=== PATIENT | female | born 1930 ===

== ENCOUNTER 2021-01-25 08:28 | Day surgery (SDC) | payer MEDICARE ==
[2021-01-25] MEDS ORDERED: ceFAZolin 1 GM in SODIUM CHLORIDE 0.9% 250 ML IRRIGATION PRN (09:32)
[2021-01-25] MEDS ORDERED: SODIUM CHLORIDE 0.9% 1,000 ML IV SCH ×2 (09:32)
[2021-01-25 09:39] LABS: Anisocytosis Slight; Basophils % (A) 0 %; Eosinophils # (A) 0.1 k/uL (0-0.7); Eosinophils % (A) 1 %; HCT 43.1 % (34.0-46.0); HGB 14.2 gm/dL (11.4-16.0); Hypochromasia Slight; Lymphocytes # (A) 1.8 k/uL (1.0-4.8); Lymphocytes % (A) 33 %; MCH 31.3 pg (25.0-35.0); MCHC 32.9 g/dL (31.0-37.0); MCV 95.2 fL (80.0-100.0); Mean Platelet Volume 9.3; Monocytes # (A) 0.4 k/uL (0-1.0); Monocytes % (A) 6 %; Neutrophils # (A) 3.2 k/uL (1.3-7.7); Neutrophils % (A) 58 %; Platelet Count 141 k/uL (150-450); RBC 4.53 m/uL (3.80-5.40); RDW 16.4 % (11.5-15.5); WBC 5.5 k/uL (3.8-10.6)
[2021-01-25 09:54] LABS: Calcium 10.2 mg/dL (8.4-10.2); Potassium 4.2 mmol/L (3.5-5.1)
[2021-01-25] MEDS ORDERED: LIDOCAINE 1% INJ 10MG/ML (20 ML MDV) ONE (10:20)
[2021-01-25] MEDS ORDERED: MIDAZOLAM 2 MG/2 ML VIAL IV ONE (10:35)
[2021-01-25] MEDS ORDERED: LIDOCAINE 1% INJ 10MG/ML (20 ML MDV) SQ ONE ×3 (10:39→11:28)
--- NOTE | 2021-01-25 11:43 | P.PCN ---
Preoperative Diagnosis: 1. Conscious sedation Patient underwent EP procedure under conscious sedation/moderate sedation, monitoring of the level of consciousness and physiologic parameters including but not limited to vital signs and oxygenation. Patient tolerated the procedure well without any acute complications. Start time: 1036 Stop time: 1138 2. Transvenous temporary pacing procedure Indication for the procedure: Severe underlying bradycardia/complete heart block/pacemaker generator at EOL Patient was brought to the EP lab in a fasting state. Written informed consent was obtained prior to the procedure. The right groin was prepped and draped as a protocol. A 6-Egyptian sheath was placed in the right femoral vein. Via this, a temporary pacing catheter was placed in the right ventricle. Thresholds were interrogated. Temporary pacing was performed through the rest of the procedure. At the end of the entire procedure, the TVP was removed. The sheath was removed and hemostasis was assured. Patient tolerated the procedure well without any acute complications. Procedure performed Transvenous temporary pacing
--- NOTE | 2021-01-25 11:45 | P.PRLE ---
RE: Vilma Short Dear Abran Esparza has complete heart block and a device was at end-of-life She underwent a transvenous temporary pacemaker followed by replacement of her dual-chamber pacemaker generator successfully She tolerated the procedure well without any acute complications We will see her again within a week in the office Thank you for entrusting me with the care of the patient Warm regards Sincerely Greg Giraldo
--- NOTE | 2021-01-25 11:47 | P.PCN ---
Preoperative Diagnosis: Cine fluoroscopy of the leads was performed Atrial lead noted in the right atrial appendage stable RV lead chronically positioned in the RV apex No fractures or breaks noted Fluoroscopy of the generator was performed, for normal limits
[2021-01-25] MEDS ORDERED: ACETAMINOPHEN TAB 325 MG TAB PO PRN (11:53)
[2021-01-25] MEDS ORDERED: ACETAMINOPHEN IV (For NPO) 1,000 MG in EMPTY BAG 1 BAG IVPB ONE (12:30)
--- NOTE | 2021-01-25 13:29 | CE ---
CARDIAC ELECTROPHYSIOLOGY REPORT This is an 89-year-old female with complete heart block whose device was at end of life. She was seen on Monday and she was urgently scheduled for dual-chamber pacemaker generator change along with TVP. After the TVP was placed, the left pectoral area was prepped and draped as per protocol. Lidocaine 1% was used for local anesthesia. An incision was made directly over the generator and carried down to the level of the generator. The generator was explanted and the new generator was implanted. Partial capsulectomy was performed. Hemostasis was assured. The wound was closed in 3 layers and dressed per protocol. The new generator implanted was a Medtronic Landrum XT DR MRI model number [id number], serial number [id number]. The chronic right atrial lead was a Medtronic model #5594, 45 cm in length, and serial number [id number]. P-waves were 1.4 volts, pacing impedance 323 ohms, pacing threshold 0.5 V at 0.4 milliseconds. The chronic RV lead was a Medtronic model #5076, 52 cm in length, and serial number [id number]. Pacing threshold 0.75 volts at 0.4 milliseconds, pacing impedance of 437 ohms. The patient tolerated the procedure well without any acute complications. IV antibiotics were administered perioperatively. MMODL / IJN: [id number] /
[2021-01-25] MEDS ORDERED: METOPROLOL SUCCINATE (ER) 25 MG TAB.ER.24H PO SCH (21:00)
[2021-01-25 21:23] VITALS: BP 166/90; PULSE 55; RESP 16; TEMP 97.7
== END 2021-01-25 22:05 | disposition home or self-care (01) ==
LOC: CATHEP 08:28 → 6NMEDSUR 11:56 → CATHEP 22:05
PROVIDERS: ATTEND Internal Medicine Clinical Cardiac Electrophysiology
DX: Z45.010 Encounter for checking and testing of cardiac pacemaker pulse generator [battery] (principal); I44.2 Atrioventricular block, complete; Z79.899 Other long term (current) drug therapy
CPT/HCPCS: 33228; 80048; 85025; C1894; C1769 ×3; C1730 ×2; C1785; J2250; J0690; J2001; J0131

== ENCOUNTER 2021-05-27 22:45 | Inpatient (IN) | payer MEDICARE ==
[2021-05-27] MEDS ORDERED: ONDANSETRON 4 MG/2 ML VIAL IVP STA (23:10)
[2021-05-27] MEDS ORDERED: SODIUM CHLORIDE 0.9% 1,000 ML IV STA (23:10)
[2021-05-27] MEDS ORDERED: MORPHINE SULFATE 4 MG/ML SYRINGE IV STA (23:10)
[2021-05-27] MEDS ORDERED: SODIUM CHLORIDE 0.9% 500 ML 500 ML IV STA (23:10)
--- NOTE | 2021-05-27 23:11 | ED ---
Fall HPI - General Chief Complaint: Fall Stated Complaint: Fall, hip injury Time Seen by Provider: 05/27/21 22:51 Source: patient, EMS, RN notes reviewed, old records reviewed Mode of arrival: EMS - History of Present Illness Initial Comments: This is a 89-year-old female to the emergency department for evaluation. Patient presents today for evaluation of significant leg pain left flank pain and inability to walk. Patient has persistent pain in the leg and back. Patient unable to walk on that leg. Patient has no recent travel history or sick contacts. Follows mechanical in nature: The bathroom. Patient has history of weakness and chronic weakness MD Complaint: fall -: minutes(s) Fall From: standing When Fall Occurred: 1 hour [employer] Fall Witnessed: no Place Fall Occurred: home Loss of Consciousness: none Prolonged Down Time?: no Symptoms Prior to Fall: none Location: pelvis Location - Extremities: Left: Thigh, Knee Severity: severe Severity scale (1-10): 9 Quality: burning Context: tripped/slipped Associated Symptoms: denies - Related Data Home Medications Medication Instructions Recorded Confirmed Citalopram Hydrobromide 20 mg PO DAILY 01/22/21 01/25/21 [Citalopram HBr] Metoprolol Succinate [Kapspargo 25 mg PO BID 01/22/21 01/25/21 Sprinkle] Allergies Allergy/AdvReac Type Severity Reaction Status Date / Time No Known Allergies Allergy Verified 01/22/21 15:05 Review of Systems ROS Statement: Those systems with pertinent positive or pertinent negative responses have been documented in the HPI. ROS Other: All systems not noted in ROS Statement are negative. Past Medical History Past Medical History: Cancer, Heart Failure Additional Past Medical History / Comment(s): breast cancer pacemaker History of Any Multi-Drug Resistant Organisms: None Reported Past Surgical History: Back Surgery Additional Past Surgical History / Comment(s): double mastectomy Past Anesthesia/Blood Transfusion Reactions: No Reported Reaction Past Psychological History: No Psychological Hx Reported Smoking Status: Never smoker Past Drug Use History: None Reported General Exam Limitations: no limitations General appearance: alert, in no apparent distress Head exam: Present: atraumatic, normocephalic, normal inspection Eye exam: Present: normal appearance, PERRL, EOMI. Absent: scleral icterus, conjunctival injection, periorbital swelling ENT exam: Present: normal exam, mucous membranes moist Neck exam: Present: normal inspection. Absent: tenderness, meningismus, lymphadenopathy Respiratory exam: Present: normal lung sounds bilaterally. Absent: respiratory distress, wheezes, rales, rhonchi, stridor Cardiovascular Exam: Present: regular rate, normal rhythm, normal heart sounds. Absent: systolic murmur, diastolic murmur, rubs, gallop, clicks GI/Abdominal exam: Present: soft, normal bowel sounds. Absent: distended, tenderness, guarding, rebound, rigid Extremities exam: Present: tenderness, normal capillary refill. Absent: full ROM, pedal edema, joint swelling, calf tenderness Back exam: Present: normal inspection Neurological exam: Present: alert, oriented X3, CN II-XII intact Psychiatric exam: Present: normal affect, normal mood Skin exam: Present: warm, dry, intact, normal color. Absent: rash Course Vital Signs 05/27/21 22:49 Temperature 97.4 F L Pulse Rate 67 Respiratory 17 Rate Blood Pressure 144/75 O2 Sat by Pulse 96 Oximetry - Reevaluation(s) Reevaluation #1: 05/28/21 01:19 Medical record is reviewed Reevaluation #2: 05/28/21 01:19 Patient having persistent left leg pain inability to move left leg Reevaluation #3: 05/28/21 02:01 Patient is unable to move left leg or walk. 05/28/21 02:01 Having severe left leg pain Medical Decision Making - Medical Decision Making 89 female to the ER status post fall with severe left leg pain patient has persistent left leg pain with inability to ambulate. Patient will be admitted for pain control and PTOT - Lab Data Result diagrams: 05/27/21 23:30 05/27/21 23:30 Lab Results 05/27/21 05/27/21 05/27/21 Range/Units 23:30 23:30 23:30 WBC 9.1 (3.8-10.6) k/uL RBC 4.26 (3.80-5.40) m/uL Hgb 13.0 (11.4-16.0) gm/dL Hct 40.1 (34.0-46.0) % MCV 94.1 (80.0-100.0) fL MCH 30.5 (25.0-35.0) pg MCHC 32.5 (31.0-37.0) g/dL RDW 13.6 (11.5-15.5) % Plt Count 138 L (150-450) k/uL MPV 8.5 Neutrophils % 79 % Lymphocytes % 15 % Monocytes % 5 % Eosinophils % 1 % Basophils % 0 % Neutrophils # 7.2 (1.3-7.7) k/uL Lymphocytes # 1.3 (1.0-4.8) k/uL Monocytes # 0.4 (0-1.0) k/uL Eosinophils # 0.1 (0-0.7) k/uL Basophils # 0.0 (0-0.2) k/uL PT 10.6 (9.0-12.0) sec INR 1.0 (<1.2) APTT 22.2 (22.0-30.0) sec Sodium 135 L (137-145) mmol/L Potassium 4.2 (3.5-5.1) mmol/L Chloride 99 (98-107) mmol/L Carbon Dioxide 27 (22-30) mmol/L Anion Gap 9 mmol/L BUN 40 H (7-17) mg/dL Creatinine 0.96 (0.52-1.04) mg/dL Est GFR (CKD-EPI)AfAm 61 (>60 ml/min/1.73 sqM) Est GFR (CKD-EPI)NonAf 53 (>60 ml/min/1.73 sqM) Glucose 138 H (74-99) mg/dL Calcium 9.4 (8.4-10.2) mg/dL Phosphorus 4.0 (2.5-4.5) mg/dL Magnesium 1.9 (1.6-2.3) mg/dL Total Bilirubin 0.4 (0.2-1.3) mg/dL AST 28 (14-36) U/L ALT 25 (4-34) U/L Alkaline Phosphatase 115 (38-126) U/L Troponin I (0.000-0.034) ng/mL NT-Pro-B Natriuret Pep pg/mL Total Protein 6.8 (6.3-8.2) g/dL Albumin 3.5 (3.5-5.0) g/dL 05/27/21 05/27/21 Range/Units 23:30 23:30 WBC (3.8-10.6) k/uL RBC (3.80-5.40) m/uL Hgb (11.4-16.0) gm/dL Hct (34.0-46.0) % MCV (80.0-100.0) fL MCH (25.0-35.0) pg MCHC (31.0-37.0) g/dL RDW (11.5-15.5) % Plt Count (150-450) k/uL MPV Neutrophils % % Lymphocytes % % Monocytes % % Eosinophils % % Basophils % % Neutrophils # (1.3-7.7) k/uL Lymphocytes # (1.0-4.8) k/uL Monocytes # (0-1.0) k/uL Eosinophils # (0-0.7) k/uL Basophils # (0-0.2) k/uL PT (9.0-12.0) sec INR (<1.2) APTT (22.0-30.0) sec Sodium (137-145) mmol/L Potassium (3.5-5.1) mmol/L Chloride (98-107) mmol/L Carbon Dioxide (22-30) mmol/L Anion Gap mmol/L BUN (7-17) mg/dL Creatinine (0.52-1.04) mg/dL Est GFR (CKD-EPI)AfAm (>60 ml/min/1.73 sqM) Est GFR (CKD-EPI)NonAf (>60 ml/min/1.73 sqM) Glucose (74-99) mg/dL Calcium (8.4-10.2) mg/dL Phosphorus (2.5-4.5) mg/dL Magnesium (1.6-2.3) mg/dL Total Bilirubin (0.2-1.3) mg/dL AST (14-36) U/L ALT (4-34) U/L Alkaline Phosphatase (38-126) U/L Troponin I <0.012 (0.000-0.034) ng/mL NT-Pro-B Natriuret Pep 861 pg/mL Total Protein (6.3-8.2) g/dL Albumin (3.5-5.0) g/dL - EKG Data -: EKG Interpreted by Me (EKG shows paced 68 AK 134 QRS 142 QTC 527) - Radiology Data Radiology results: report reviewed (X-ray left hip left femur and chest x-ray are negative for acute disease, CT left leg), image reviewed Disposition Clinical Impression: Fall, Left thigh pain, Hematoma of left lower leg, Inability to ambulate due to left hip Disposition: ADMITTED IP TO THIS HOSP Condition: Good Is patient prescribed a controlled substance at d/c from ED?: No Referrals: Abran Glover MD [Primary Care Provider] - 1-2 days
[2021-05-27 23:51] LABS: Basophils % (A) 0 %; Eosinophils # (A) 0.1 k/uL (0-0.7); Eosinophils % (A) 1 %; HCT 40.1 % (34.0-46.0); Lymphocytes # (A) 1.3 k/uL (1.0-4.8); Lymphocytes % (A) 15 %; MCH 30.5 pg (25.0-35.0); MCHC 32.5 g/dL (31.0-37.0); MCV 94.1 fL (80.0-100.0); Mean Platelet Volume 8.5; Monocytes # (A) 0.4 k/uL (0-1.0); Monocytes % (A) 5 %; Neutrophils # (A) 7.2 k/uL (1.3-7.7); Neutrophils % (A) 79 %; Platelet Count 138 k/uL (150-450); RBC 4.26 m/uL (3.80-5.40); RDW 13.6 % (11.5-15.5); WBC 9.1 k/uL (3.8-10.6)
--- NOTE | 2021-05-28 00:10 | XR ---
EXAMINATION TYPE: XR Hip LT and AP Pelvis DATE OF EXAM: 05/27/2021 COMPARISON: NONE HISTORY: Fall. Hip pain TECHNIQUE: 3 views FINDINGS: The pelvic ring is intact. Proximal left femur and hip joint appear intact. There is no hip dysplasia. There is minimal acetabular spurring. Sacroiliac joints are intact. IMPRESSION: No acute abnormality of the pelvis and left hip.
--- NOTE | 2021-05-28 00:12 | XR ---
EXAMINATION TYPE: XR chest 1V DATE OF EXAM: 05/27/2021 COMPARISON: NONE HISTORY: Fall. Chest pain TECHNIQUE: Single view FINDINGS: There is no heart failure nor confluent pneumonic infiltrate. Costophrenic angles are clear . There is left axillary pacemaker. There is no pleural effusion. Thoracic aorta is atheromatous. Bon y thorax is intact IMPRESSION: No active cardiopulmonary disease.
[2021-05-28 00:13] LABS: Partial Thromboplastin Time 22.2 sec (22.0-30.0); Prothrombin Time 10.6 sec (9.0-12.0)
--- NOTE | 2021-05-28 00:15 | XR ---
EXAMINATION TYPE: XR femur LT DATE OF EXAM: 05/28/2021 COMPARISON: NONE HISTORY: Fall. Pain TECHNIQUE: 4 views FINDINGS: Hip joint is intact. There is mild acetabular spurring. There is left knee prosthesis. Ther e is vascular calcification. IMPRESSION: There is some mild osteoarthritis in the left hip joint. No fracture seen. Vascular calci fication noted.
[2021-05-28 00:17] LABS: Albumin 3.5 g/dL (3.5-5.0); Calcium 9.4 mg/dL (8.4-10.2); Potassium 4.2 mmol/L (3.5-5.1); Total Bilirubin 0.4 mg/dL (0.2-1.3); Total Protein 6.8 g/dL (6.3-8.2)
[2021-05-28 00:19] LABS: Magnesium 1.9 mg/dL (1.6-2.3)
--- NOTE | 2021-05-28 01:32 | CT ---
EXAMINATION TYPE: CT femur LT wo con DATE OF EXAM: 05/28/2021 COMPARISON: None HISTORY: fall CT DLP: 843.6 mGycm Automated exposure control for dose reduction was used. Images obtained from the acetabulum to the proximal tibia without contrast. There is a left knee prosthesis with metal artifact. Detail limited at the knee due to metal artifact . The proximal femur is intact. Hip joint is anatomic. I see no fracture. There is minimal acetabular spurring. There is no evidence of a soft tissue mass. There is no free fluid in the pelvis. There ar e multiple sigmoid diverticula. Femoral shaft is intact. IMPRESSION: Exam fails to show evidence of a femoral fracture. There are some degenerative changes at the hip prema nt.
[2021-05-28] MEDS ORDERED: HYDROmorphone 1 MG/ML 1 ML SYRINGE IVP PRN (01:48)
[2021-05-28] MEDS ORDERED: HYDROmorphone 1 MG/ML 1 ML SYRINGE IVP STA (01:48)
[2021-05-28] MEDS ORDERED: NALOXONE 0.4 MG/ML 1 ML VIAL IV PRN (01:59)
[2021-05-28] MEDS ORDERED: ONDANSETRON 4 MG/2 ML VIAL IVP PRN (01:59)
[2021-05-28] MEDS: SODIUM CHLORIDE 0.9% 1,000 ML IV SCH ×3 (02:20→18:18)
[2021-05-28 02:24] LABS: Appearance,Urine Cloudy (Clear); Bacteria,Urine Moderate /hpf; Bilirubin,Urine Negative (Negative); Blood,Urine Negative (Negative); Color,Urine Yellow; Glucose,Urine (UA) Negative (Negative); Ketones,Urine Negative (Negative); Leukocyte Esterase,Urine Moderate (Negative); Nitrite,Urine Positive (Negative); PH, Urine 6.5 (5.0-8.0); Protein,Urine Trace (Negative); RBC,Urine 1 /hpf (0-5); Specific Gravity,Urine 1.018 (1.001-1.035); Urobilinogen,Urine <2.0 mg/dL (<2.0); WBC,Urine 30 /hpf (0-5)
[2021-05-28] MEDS: MULTIVITAMINS, THERA 1 EACH TAB PO SCH (13:57)
[2021-05-28] MEDS: METOPROLOL SUCCINATE (ER) 25 MG TAB.ER.24H PO SCH (13:57)
--- NOTE | 2021-05-28 14:58 | P.HPIM ---
History of Present Illness H&P Date: 05/28/21 Chief Complaint: Left leg pain This is a pleasant 89-year-old patient, follows with visiting physicians Dr. Zuñiga. Patient is a poor historian. Per the EMS report and ER notes. Patient's caregiver stated that patient was found laying on the bathroom floor. She was assisting the patient off the toilet when the patient slipped and fell on to the bathroom floor landing directly onto her left hip. Nose no hitting of the head. Patient complaining of pain in the left leg. No rotational deformity was noted. Her pain within was 7 out of 10. Patient was then transported to the ER. The patient also is not sure why she is here. Computed tomography scan of the x-ray in the ER didn't rule out any obvious fracture. Patient still complains of pain in the left hip area. She does not know the month or the year on exactly why she is here. Patient looking for her daughter. Review of systems: GEN.: Tired EYES: None HEENT: None NECK: None RESPIRATORY: None CARDIOVASCULAR: None GASTROINTESTINAL: None GENITOURINARY: None MUSCULOSKELETAL: Joint pains LYMPHATICS: None HEMATOLOGICAL: None PSYCHIATRY: Forgetful NEUROLOGICAL: None Past medical history to include: Breast cancer, pacemaker, CHF, Social history: He denies history of smoking or alcohol. Has a caregiver. Family history: Patient cannot tell Physical examination: VITAL SIGNS: 97.6, 69, 16, 129/79, 92% on 1 L GENERAL: BMI 29.3, laying in bed, awake not in distress. EYES: Pupils equal. Conjunctiva normal. HEENT: External appearance of nose and ears normal, oral cavity grossly normal. NECK: JVD not raised; masses not palpable. HEART: First and second heart sounds are normal; no edema. LUNGS: Respiratory rate normal; clear to auscultation. ABDOMEN: Soft, nontender, liver spleen not palpable, no masses palpable. MUSCULAR skeletal: Evidence of OA especially in the hands and knees. Patient is able to lift her right leg a bit but not the left leg. Left leg is not shortened. I'll rotated. PSYCH: Patient knows her name. Does not know what place she is does not know the month of the year.l. NEUROLOGICAL: Cranial nerves grossly intact; no facial asymmetry, power and sensation grossly intact. LYMPHATICS: No lymph nodes palpable in the axilla and neck INVESTIGATIONS, reviewed in the clinical context: White count 9.1 hemoglobin 13 platelets 138 sodium 135 potassium 4.2. 40 creatinine 0.96 UA positive for nitrate, leukoesterase, WBC, bacteria Coronavirus [PCR]: Not detected EKG tracing personally reviewed by me-atrial sensed ventricular paced rhythm. Computed tomography scan left femur: DJD changes. No evidence of fracture. Chest x-ray film personally reviewed by me-pacemaker. Some unfolding of the aorta. Prominent pulmonary artery. Assessment and plan: -This patient presents with a fall when she fell off the toilet on the left hip. Having significant pain. Decreased range of motion. X-ray and the computed tomography scan board do not show any obvious fracture. We will consult orthopedics rule out any hairline fracture. Pain control. Fall precaution -Primary osteoarthritis multiple just bilaterally Pain control when necessary -Major cognitive impairment likely from advanced Alzheimer's dementia Check TSH. 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 Chronic systolic heart failure. Follow clinically -Possible UTI. 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 Consult orthopedics. Bedrest. Keflex. Subcu Lovenox. Home medications resumed. Tylenol for pain. Past Medical History Past Medical History: Cancer, Heart Failure Additional Past Medical History / Comment(s): breast cancer pacemaker History of Any Multi-Drug Resistant Organisms: None Reported Past Surgical History: Back Surgery Additional Past Surgical History / Comment(s): double mastectomy Past Anesthesia/Blood Transfusion Reactions: No Reported Reaction Past Psychological History: No Psychological Hx Reported Smoking Status: Never smoker Past Drug Use History: None Reported Medications and Allergies Home Medications Medication Instructions Recorded Confirmed Type Citalopram Hydrobromide 20 mg PO HS 01/22/21 05/28/21 History [Citalopram HBr] Metoprolol Succinate [Toprol XL] 25 mg PO BID 05/28/21 05/28/21 History Multivitamins, Thera [Multivitamin 1 tab PO DAILY 05/28/21 05/28/21 History (formulary)] Allergies Allergy/AdvReac Type Severity Reaction Status Date / Time No Known Allergies Allergy Verified 05/28/21 09:19 Physical Exam Vitals: Vital Signs Temp Pulse Pulse Resp BP BP Pulse Ox 05/28/21 08:00 97.6 F 69 16 129/79 92 L 05/28/21 05:26 77 16 100/66 98 05/28/21 02:00 81 17 104/71 98 05/27/21 22:49 97.4 F L 67 17 144/75 96 Intake and Output 05/27/21 05/28/21 05/28/21 22:59 06:59 14:59 Other: Weight 72.575 kg Results CBC & Chem 7: 05/27/21 23:30 05/27/21 23:30 Labs: Abnormal Lab Results - Last 24 Hours (Table) 05/27/21 05/27/21 05/27/21 Range/Units 02:15 23:30 23:30 Plt Count 138 L (150-450) k/uL Sodium 135 L (137-145) mmol/L BUN 40 H (7-17) mg/dL Glucose 138 H (74-99) mg/dL Urine Appearance Cloudy H (Clear) Urine Protein Trace H (Negative) Urine Nitrite Positive H (Negative) Ur Leukocyte Esterase Moderate H (Negative) Urine WBC 30 H (0-5) /hpf Urine Bacteria Moderate H (None) /hpf
[2021-05-28] MEDS: ENOXAPARIN 40 MG/0.4 ML SYRINGE SQ SCH (18:17)
[2021-05-28] MEDS: ACETAMINOPHEN TAB 500 MG TAB PO PRN (18:17)
[2021-05-28] MEDS: CEPHALEXIN 250 MG CAP PO SCH (19:22)
[2021-05-29] MEDS: METOPROLOL SUCCINATE (ER) 25 MG TAB.ER.24H PO SCH ×3 (03:21→21:30)
[2021-05-29] MEDS: ACETAMINOPHEN TAB 500 MG TAB PO PRN ×2 (03:21→18:00)
[2021-05-29] MEDS: CEPHALEXIN 250 MG CAP PO SCH ×4 (03:22→21:30)
[2021-05-29] MEDS: CITALOPRAM HYDROBROMIDE 20 MG TAB PO SCH ×2 (03:24→21:30)
[2021-05-29 06:26] LABS: Basophils % (A) 0 %; Eosinophils # (A) 0.1 k/uL (0-0.7); Eosinophils % (A) 1 %; HCT 35.7 % (34.0-46.0); HGB 11.9 gm/dL (11.4-16.0); Lymphocytes # (A) 2.1 k/uL (1.0-4.8); Lymphocytes % (A) 31 %; MCH 31.2 pg (25.0-35.0); MCHC 33.3 g/dL (31.0-37.0); MCV 93.8 fL (80.0-100.0); Mean Platelet Volume 8.5; Monocytes # (A) 0.5 k/uL (0-1.0); Monocytes % (A) 7 %; Neutrophils # (A) 4.1 k/uL (1.3-7.7); Neutrophils % (A) 59 %; Platelet Count 127 k/uL (150-450); RBC 3.81 m/uL (3.80-5.40); RDW 13.7 % (11.5-15.5); WBC 6.8 k/uL (3.8-10.6)
--- NOTE | 2021-05-29 07:36 | XR ---
EXAMINATION TYPE: XR knee complete LT DATE OF EXAM: 05/29/2021 7:18 AM INDICATION: Patient age:Female; 89 years old; Reason for study: fall/pain, concern for periprosthetic fx; COMPARISON: Radiograph 05/28/2021 TECHNIQUE: The left knee was examined in 3 projections. FINDINGS: Total knee arthroplasty changes are appreciated. Subtle step-off of the lateral femoral co ndyle is appreciated. No evidence convincing of acute osseous pathology, joint space narrowing, soft tissue swelling, or joint effusion is noted. IMPRESSION: Subtle step-off the lateral femoral condyle, this is not significantly changed from one day prior and may be related to postsurgical changes. If there remains clinical concern consider CT of the knee.
--- NOTE | 2021-05-29 08:26 | CT ---
EXAMINATION TYPE: CT knee LT wo con CT DLP: 358.6 mGycm, Automated exposure control for dose reduction was used. DATE OF EXAM: 05/29/2021 8:17 AM COMPARISON: Extremity radiograph same day. CLINICAL INDICATION:Female, 89 years old with history of periprosthetic fracture; TECHNIQUE: Axial images were obtained of the left knee without the use of IV contrast. Additional co ayden and sagittal reformatted images and soft tissue and bone window were obtained for review. 3-D r econstruction was created on a separate workstation. FINDINGS: Artifact limits evaluation. Previous cortical step-off of the left knee lateral femoral condyle is represent an acute fracture, t here is approximately 8 mm displacement. Visualized portions of the tibia and fibula and remainder of the femur are unremarkable. Atherosclerosis of the arterial vasculature is present. Mild fat strandi ng changes are seen around the fracture site. There is a small lipohemarthrosis present. IMPRESSION: Acute mildly displaced lateral left femoral condyle periprosthetic fracture is 8 mm displacement. Sma ll lipohemarthrosis present.
[2021-05-29 09:12] LABS: African American GFR (CKD) 65.7 (60.0-200.0); Albumin 3.6 g/dL (3.8-4.9); Albumin/Globulin Ratio 1.33 (1.60-3.17); Anion Gap 12.4 mmol/L (10.00-18.00); BUN/Creat Ratio 31.11 Ratio (12.00-20.00); Calcium 9.4 mg/dL (8.7-10.3); Carbon Dioxide 21.6 mmol/L (20.0-27.5); Globulin 2.7 g/dL (1.6-3.3); Non-African American GFR(CKD) 56.7 (60.0-200.0); Potassium 4.2 mmol/L (3.5-5.5); Total Bilirubin 1.2 mg/dL (0.30-1.20); Total Protein 6.3 g/dL (6.2-8.2)
[2021-05-29] MEDS: MULTIVITAMINS, THERA 1 EACH TAB PO SCH (09:20)
[2021-05-29] MEDS: ENOXAPARIN 40 MG/0.4 ML SYRINGE SQ SCH (09:20)
--- NOTE | 2021-05-29 10:47 | P.CNOR ---
History of Present Illness - [facility] Consult date: 05/29/21 Consult reason: fracture History of present illness: This is a pleasant 89-year-old patient seen at bedside this morning in consultation for left leg and knee pain. She is status post left total knee arthroplasty for which the date, where, and who performed the procedure is currently unknown. Patient is a poor historian as she has a history of dementia. She is alert at bedside this morning and in no apparent distress. In reports it is noted she was found in the bathroom after a fall. It is reported that the patient's caregiver was assisting the patient off the toilet when the patient slipped and fell on to the bathroom floor landing directly onto her left hip. She states she lives with her daughters. She states that she ambulates regularly prior to this injury. She has no pain at rest currently. Pain that she does report is in the left thigh and knee. She denies calf pain or new numbness or tingling. She has no other current complaints. Review of Systems ROS unobtainable: due to mental status Past Medical History Past Medical History: Cancer, Heart Failure Additional Past Medical History / Comment(s): breast cancer pacemaker History of Any Multi-Drug Resistant Organisms: None Reported Past Surgical History: Back Surgery Additional Past Surgical History / Comment(s): double mastectomy Past Anesthesia/Blood Transfusion Reactions: No Reported Reaction Smoking Status: Never smoker Medications and Allergies Home Medications Medication Instructions Recorded Confirmed Type Citalopram Hydrobromide 20 mg PO HS 01/22/21 05/28/21 History [Citalopram HBr] Metoprolol Succinate [Toprol XL] 25 mg PO BID 05/28/21 05/28/21 History Multivitamins, Thera [Multivitamin 1 tab PO DAILY 05/28/21 05/28/21 History (formulary)] Allergies Allergy/AdvReac Type Severity Reaction Status Date / Time No Known Allergies Allergy Verified 05/28/21 09:19 Physical Examination Inspection of the left lower extremity shows no deformity. There is no erythema or ecchymoses. There is an effusion at the left knee. There is a well-healed surgical wound from prior total knee arthroplasty. She is mildly tender to touch at the left knee. It is not hot to touch. Range of motion of the left hip and knee are not tested due to fracture. She has full painless active range of motion of the ankle, foot and toes. Calf is soft and nontender. Neuro vascular status is grossly intact with motor and sensation throughout the left lower extremity. There is 2+ dorsalis pedis pulse and less than 2 second capillary refill present. Results Imaging studies of the left femur and knee show mild displaced left lateral femoral condyle periprosthetic fracture. - Labs Labs: Abnormal Lab Results - Last 24 Hours (Table) 05/29/21 05/29/21 Range/Units 05:33 05:33 Plt Count 127 L (150-450) k/uL BUN 28.0 H (9.0-27.0) mg/dL Est GFR (CKD-EPI)NonAf 56.7 L (60.0-200.0) BUN/Creatinine Ratio 31.11 H (12.00-20.00) Ratio Glucose 124 H (70-110) mg/dL Albumin 3.6 L (3.8-4.9) g/dL Albumin/Globulin Ratio 1.33 L (1.60-3.17) g/dL Microbiology - Last 24 Hours (Table) 05/27/21 02:15 Urine Culture - Preliminary Urine,Voided H & H 05/27/21 05/29/21 Range/Units 23:30 05:33 Hgb 13.0 11.9 (11.4-16.0) gm/dL Hct 40.1 35.7 (34.0-46.0) % Coagulation 05/27/21 Range/Units 23:30 INR 1.0 (<1.2) Result Diagrams: 05/29/21 05:33 05/29/21 05:33 - Diagnostic results Knee x-ray: report reviewed, image reviewed Knee CT: report reviewed, image reviewed Assessment and Plan (1) Closed fracture of lateral condyle of distal end of left femur Narrative/Plan: Patient has been reviewed with Dr. Ramos. She is to be nonweightbearing of the left lower extremity. Continue ice, elevation, pain management, DVT prophylaxis and medical management. Dr. Ramos will discuss with family p ossibly proceeding with surgical intervention including repair versus revision early this coming week. Current Visit: Yes Status: Acute Priority: Medium Code(s): S72.422A - DISP FX OF LATERAL CONDYLE OF LEFT FEMUR, INIT FOR CLOS FX SNOMED Code(s): 037261458 Time with Patient: Less than 30
--- NOTE | 2021-05-29 14:41 | P.PN ---
Progress Note - Text Progress Note Date: 05/29/21 I had a long discussion with Vilma and her daughter. She has a very distal periprosthetic femur fracture around a primary total knee replacement. She has mild dementia, but is otherwise healthy and ambulates with a walker at baseline. We discussed both non-operative treatment versus operative treatment. Surgical options discussed included attempt at ORIF versus revision arthroplasty with a distal femoral replacing hinge. We discussed the pros and cons of both surgical options as well as the recent orthopaedic literature. Given the distal nature of her fracture, poor bone quality, and mild dementia, I recommended revision to a distal femoral replacing hinge as this would allow immediate weight bearing. If the family decides they would like to proceed with surgery, we would plan for surgery Monday afternoon. She is to remain NWB until then.
--- NOTE | 2021-05-29 15:28 | P.PN ---
Progress Note - Text Progress Note Date: 05/29/21 Chief Complaint: Left leg pain This is a pleasant 89-year-old patient, follows with visiting physicians Dr. Zuñiga. Patient is a poor historian. Per the EMS report and ER notes. Patient's caregiver stated that patient was found laying on the bathroom floor. She was assisting the patient off the toilet when the patient slipped and fell on to the bathroom floor landing directly onto her left hip. Nose no hitting of the head. Patient complaining of pain in the left leg. No rotational deformity was noted. Her pain within was 7 out of 10. Patient was then transported to the ER. The patient also is not sure why she is here. Computed tomography scan of the x-ray in the ER didn't rule out any obvious fracture. Patient still complains of pain in the left hip area. She does not know the month or the year on exactly why she is here. Patient looking for her daughter. May 29: Declining in bed. Some pain in the leg. Daughter the bedside. Oral intake fair. Computed tomography scan of the knee showing acute mildly displaced lateral left femoral condyle periprosthetic fracture. Orthopedic at this point to be discussing with the family operative versus conservative management with a brace Review of systems: Was done for constitutional, cardiovascular, GI, pulmonary. relevant finding as above Active Medications Acetaminophen (Acetaminophen Tab 500 Mg Tab) 500 mg PO Q4HR PRN PRN Reason: Fever and/ or MILD Pain Last Admin: 05/29/21 03:21 Dose: 500 mg Documented by: Cephalexin (Cephalexin 250 Mg Cap) 250 mg PO QID [facility] Last Admin: 05/29/21 12:15 Dose: 250 mg Documented by: Citalopram Hydrobromide (Citalopram Hydrobromide 20 Mg Tab) 20 mg PO HS [facility] Last Admin: 05/29/21 03:24 Dose: 20 mg Documented by: Enoxaparin Sodium (Enoxaparin 40 Mg/0.4 Ml Syringe) 40 mg SQ DAILY [facility] Last Admin: 05/29/21 09:20 Dose: 40 mg Documented by: Sodium Chloride (Saline 0.9%) 1,000 mls @ 50 mls/hr IV .Q20H [facility] Last Admin: 05/28/21 18:18 Dose: Not Given Documented by: Metoprolol Succinate (Metoprolol Succinate (Er) 25 Mg Tab.Er.24h) 25 mg PO BID [facility] Last Admin: 05/29/21 09:23 Dose: 25 mg Documented by: Multivitamins (Multivitamins, Thera 1 Each Tab) 1 each PO DAILY [facility] Last Admin: 05/29/21 09:20 Dose: 1 each Documented by: Naloxone HCl (Naloxone 0.4 Mg/Ml 1 Ml Vial) 0.2 mg IV Q2M PRN PRN Reason: Opioid Reversal Ondansetron HCl (Ondansetron 4 Mg/2 Ml Vial) 4 mg IVP Q8HR PRN PRN Reason: Nausea And Vomiting Past medical history to include: Breast cancer, pacemaker, CHF, Social history: He denies history of smoking or alcohol. Has a caregiver. Family history: Patient cannot tell Physical examination: VITAL SIGNS: 98.1, 80, 16, 140/69, 97% room air GENERAL: reclining bed, awake, comfortable. EYES: Pupils equal. Conjunctiva normal. HEENT: External appearance of nose and ears normal, oral cavity grossly normal. NECK: JVD not raised; masses not palpable. HEART: First and second heart sounds are normal; no edema. LUNGS: Respiratory rate normal; clear to auscultation. ABDOMEN: Soft, nontender, liver spleen not palpable, no masses palpable. MUSCULAR skeletal: Evidence of OA especially in the hands and knees. Patient is able to lift her right leg a bit but not the left leg. PSYCH: Can't answer simple questions INVESTIGATIONS, reviewed in the clinical context: May 29: WBC 6.8 hemoglobin 11.9 platelets 127 Computed tomography scan left knee: Acutely mildly displaced lateral left femoral condyle periprosthetic fracture White count 9.1 hemoglobin 13 platelets 138 sodium 135 potassium 4.2. 40 creatinine 0.96 UA positive for nitrate, leukoesterase, WBC, bacteria Coronavirus [PCR]: Not detected EKG tracing personally reviewed by me-atrial sensed ventricular paced rhythm. Computed tomography scan left femur: DJD changes. No evidence of fracture. Chest x-ray film personally reviewed by me-pacemaker. Some unfolding of the aorta. Prominent pulmonary artery. Assessment and plan: -This patient presents with a fall when she fell off the toilet :Acutely mildly displaced lateral left femoral condyle periprosthetic fracture Decision between surgical intervention and conservative management after discussion between orthopedics and family. -Primary osteoarthritis multiple just bilaterally Pain control when necessary -Major cognitive impairment likely from advanced Alzheimer's dementia Check TSH. 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 Chronic systolic heart failure. Follow clinically -Possible UTI. 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 Awaiting decision from orthopedics after discussion with the family. Discussed with the daughter the bedside.
[2021-05-29] MEDS: SODIUM CHLORIDE 0.9% 1,000 ML IV SCH (22:30)
[2021-05-30] MEDS: METOPROLOL SUCCINATE (ER) 25 MG TAB.ER.24H PO SCH (08:49)
[2021-05-30] MEDS: MULTIVITAMINS, THERA 1 EACH TAB PO SCH (08:50)
[2021-05-30] MEDS: CEPHALEXIN 250 MG CAP PO SCH ×4 (08:50→21:13)
[2021-05-30] MEDS: ENOXAPARIN 40 MG/0.4 ML SYRINGE SQ SCH (08:50)
--- NOTE | 2021-05-30 10:57 | P.PN ---
Subjective Progress Note Date: 05/30/21 Principal diagnosis: Left distal femur fracture status post left total knee arthroplasty Patient is pleasant 89 female seen at bedside this morning. We are following her for left distal femur periprosthetic fracture . She has no new complaints today. She has no pain at rest. She denies fever chills or calf pain. Objective - Vital Signs Vital signs: Vital Signs Temp 98.1 F 05/29/21 20:00 Pulse 78 05/30/21 08:46 Resp 18 05/30/21 05:00 BP 175/97 05/30/21 08:46 Pulse Ox 97 05/30/21 08:46 Intake & Output 05/29/21 05/30/21 05/30/21 18:59 06:59 18:59 Intake Total 240 Output Total 1000 300 Balance -1000 -60 Weight 72.575 kg Intake: Oral 240 Output: Urine 1000 300 Other: Voiding Method Indwelling Catheter Indwelling Catheter Indwelling Catheter - Exam Inspection of the left lower extremity shows no deformity. There is no erythema. There is mild effusion of the left knee. It is tender to touch. It is not hot to touch. Range of motion of the hip and knee and tested to the fracture. Calf is soft and nontender. Motor and sensation is grossly intact throughout the left lower extremity. 2+ dorsalis pedis pulse and less than 2 second capillary refill is present. - Constitutional General appearance: Present: no acute distress - Labs CBC & Chem 7: 05/29/21 05:33 05/29/21 05:33 Labs: Microbiology - Last 24 Hours (Table) 05/27/21 02:15 Urine Culture - Final Urine,Voided Escherichia coli Assessment and Plan (1) Closed fracture of lateral condyle of distal end of left femur Narrative/Plan: Patient has been reviewed with Dr. Ramos. She is to continue to be nonweightbearing of the left lower extremity. Continue ice, elevation, pain management, DVT prophylaxis and medical management. Plan is to proceed with surgical intervention tomorrow, 05/31/2021 in the afternoon with ORIF versus revision arthroplasty with distal femur hinge. She is to be nothing by mouth after midnight. Procedure and consent have been ordered. Current Visit: Yes Status: Acute Priority: Medium Code(s): S72.422A - DISP FX OF LATERAL CONDYLE OF LEFT FEMUR, INIT FOR CLOS FX SNOMED Code(s): 034575692 Time with Patient: Less than 30
[2021-05-30] MEDS: ACETAMINOPHEN TAB 500 MG TAB PO PRN ×2 (12:17→21:13)
--- NOTE | 2021-05-30 19:00 | P.PN ---
Progress Note - Text Progress Note Date: 05/30/21 Chief Complaint: Left leg pain This is a pleasant 89-year-old patient, follows with visiting physicians Dr. Zuñiga. Patient is a poor historian. Per the EMS report and ER notes. Patient's caregiver stated that patient was found laying on the bathroom floor. She was assisting the patient off the toilet when the patient slipped and fell on to the bathroom floor landing directly onto her left hip. Nose no hitting of the head. Patient complaining of pain in the left leg. No rotational deformity was noted. Her pain within was 7 out of 10. Patient was then transported to the ER. The patient also is not sure why she is here. Computed tomography scan of the x-ray in the ER didn't rule out any obvious fracture. Patient still complains of pain in the left hip area. She does not know the month or the year on exactly why she is here. Patient looking for her daughter. May 29: Declining in bed. Some pain in the leg. Daughter the bedside. Oral intake fair. Computed tomography scan of the knee showing acute mildly displaced lateral left femoral condyle periprosthetic fracture. Orthopedic at this point to be discussing with the family operative versus conservative management with a brace May 30: Reclining in bed. Having lunch. Daughter present. Decision made to proceed for surgery tomorrow. Pain control. Review of systems: Was done for constitutional, cardiovascular, GI, pulmonary. relevant finding as above Active Medications Acetaminophen (Acetaminophen Tab 500 Mg Tab) 500 mg PO Q4HR PRN PRN Reason: Fever and/ or MILD Pain Last Admin: 05/30/21 12:17 Dose: 500 mg Documented by: Cephalexin (Cephalexin 250 Mg Cap) 250 mg PO QID [facility] Last Admin: 05/30/21 17:42 Dose: 250 mg Documented by: Citalopram Hydrobromide (Citalopram Hydrobromide 20 Mg Tab) 20 mg PO HS [facility] Last Admin: 05/29/21 21:30 Dose: 20 mg Documented by: Enoxaparin Sodium (Enoxaparin 40 Mg/0.4 Ml Syringe) 40 mg SQ DAILY [facility] Last Admin: 05/30/21 08:50 Dose: 40 mg Documented by: Sodium Chloride (Saline 0.9%) 1,000 mls @ 50 mls/hr IV .Q20H [facility] Last Admin: 05/29/21 22:30 Dose: Not Given Documented by: Metoprolol Succinate (Metoprolol Succinate (Er) 25 Mg Tab.Er.24h) 25 mg PO BID [facility] Last Admin: 05/30/21 08:49 Dose: 25 mg Documented by: Multivitamins (Multivitamins, Thera 1 Each Tab) 1 each PO DAILY [facility] Last Admin: 05/30/21 08:50 Dose: 1 each Documented by: Naloxone HCl (Naloxone 0.4 Mg/Ml 1 Ml Vial) 0.2 mg IV Q2M PRN PRN Reason: Opioid Reversal Ondansetron HCl (Ondansetron 4 Mg/2 Ml Vial) 4 mg IVP Q8HR PRN PRN Reason: Nausea And Vomiting Past medical history to include: Breast cancer, pacemaker, CHF, Social history: He denies history of smoking or alcohol. Has a caregiver. Family history: Patient cannot tell Physical examination: VITAL SIGNS: 98.2, 70, 17, 171/74, 94% room air GENERAL: reclining bed, awake, comfortable. EYES: Pupils equal. Conjunctiva normal. HEENT: External appearance of nose and ears normal, oral cavity grossly normal. NECK: JVD not raised; masses not palpable. HEART: First and second heart sounds are normal; no edema. LUNGS: Respiratory rate normal; clear to auscultation. ABDOMEN: Soft, nontender, liver spleen not palpable, no masses palpable. MUSCULAR skeletal: Evidence of OA especially in the hands and knees. Patient is able to lift her right leg a bit but not the left leg. PSYCH: Can't answer simple questions INVESTIGATIONS, reviewed in the clinical context: TSH 1.03 June 1: WBC 6.8 hemoglobin 11.9 platelets 127 Computed tomography scan left knee: Acutely mildly displaced lateral left femoral condyle periprosthetic fracture White count 9.1 hemoglobin 13 platelets 138 sodium 135 potassium 4.2. 40 creatinine 0.96 UA positive for nitrate, leukoesterase, WBC, bacteria Coronavirus [PCR]: Not detected EKG tracing personally reviewed by me-atrial sensed ventricular paced rhythm. Computed tomography scan left femur: DJD changes. No evidence of fracture. Chest x-ray film personally reviewed by me-pacemaker. Some unfolding of the aorta. Prominent pulmonary artery. Assessment and plan: -This patient presents with a fall when she fell off the toilet :Acutely mildly displaced lateral left femoral condyle periprosthetic fracture For surgical intervention tomorrow -Essential hypertension uncontrolled Increase Lopressor to 50 mg twice a day. 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 Chronic systolic heart failure. Follow clinically -Possible UTI. 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 beta hillary. Increase Lopressor to 50 mg twice a day .Lisinopril hydrochlorothiazide 10/12 point 5 at night. Cutback IV fluids. Discussed with daughter She is medically stable to proceed with surgery. Telemetry.
[2021-05-30] MEDS: LISINOPRIL-HCTZ 10-12.5 MG 1 EACH TAB PO SCH (21:13)
[2021-05-30] MEDS: METOPROLOL TARTRATE 50 MG TAB PO SCH (21:13)
[2021-05-30] MEDS: CITALOPRAM HYDROBROMIDE 20 MG TAB PO SCH (21:13)
[2021-05-30] MEDS: SODIUM CHLORIDE 0.9% 1,000 ML IV SCH (21:14)
[2021-05-31] MEDS: SODIUM CHLORIDE 0.9% 1,000 ML IV SCH (04:47)
[2021-05-31] MEDS: METOPROLOL TARTRATE 50 MG TAB PO SCH ×2 (08:42→23:44)
[2021-05-31] MEDS: ACETAMINOPHEN TAB 500 MG TAB PO PRN (08:42)
[2021-05-31] MEDS: CEPHALEXIN 250 MG CAP PO SCH ×4 (09:55→21:48)
[2021-05-31] MEDS: MULTIVITAMINS, THERA 1 EACH TAB PO SCH (09:55)
[2021-05-31] MEDS: ENOXAPARIN 40 MG/0.4 ML SYRINGE SQ SCH (09:55)
[2021-05-31] MEDS ORDERED: ROPIVACAINE/EPI/CLONIDINE/KET 50 ML SYRINGE MISCELLANE PRN (10:07)
[2021-05-31] MEDS ORDERED: TRANEXAMIC ACID 1,000 MG in SODIUM CHLORIDE 0.9% 100 ML IVPB ONE ×4 (10:07)
[2021-05-31] MEDS ORDERED: LACTATED RINGERS 1,000 ML IV ONE ×2 (12:49→15:36)
[2021-05-31] MEDS ORDERED: ePHEDrine 50 MG/ML 1 ML AMP ONE (13:25)
[2021-05-31] MEDS ORDERED: GLYCOPYRROLATE 0.2 MG/ML 2 ML VIAL ONE (13:25)
[2021-05-31] MEDS ORDERED: HYDROmorphone (PF) 1 MG/ML ONE (13:25)
[2021-05-31] MEDS ORDERED: ETOMIDATE 2 MG/ML 10 ML VIAL ONE (13:25)
[2021-05-31] MEDS ORDERED: ROCURONIUM 10 MG/ML (5 ML VIAL) IV ONE (13:25)
[2021-05-31] MEDS ORDERED: SUCCINYLCHOLINE CHLORIDE 100 MG/5 ML SYR IV ONE (13:25)
[2021-05-31] MEDS ORDERED: LIDOCAINE 1% INJ 10MG/ML (20 ML MDV) ONE (13:25)
[2021-05-31] MEDS ORDERED: PHENYLEPHRINE-0.9% NACL SYG 1,000 MCG/10 ML SYRINGE ONE (13:25)
[2021-05-31] MEDS ORDERED: SODIUM CHLORIDE 0.9% 100 ML BAG ONE (13:25)
[2021-05-31] MEDS ORDERED: NEOSTIGMINE 1 MG/ML 10 ML VIAL ONE (13:25)
[2021-05-31] MEDS ORDERED: fentaNYL (PF) 50 MCG/ML 2 ML AMP ONE (13:25)
[2021-05-31] MEDS ORDERED: TRANEXAMIC ACID 1,000 MG/10 ML VIAL ONE (13:25)
[2021-05-31] MEDS ORDERED: VANCOMYCIN 1,000 MG VIAL MISCELLANE ONE (16:34)
[2021-05-31] MEDS ORDERED: HYDROmorphone 0.2 MG/1 ML SYRINGE IVP PRN (17:11)
[2021-05-31] MEDS ORDERED: HYDROcodone/APAP 5-325MG 1 EACH TAB PO PRN ×2 (17:11)
[2021-05-31] MEDS ORDERED: MAGNESIUM HYDROXIDE 2,400 MG/10 ML CUP PO PRN (17:11)
[2021-05-31] MEDS ORDERED: HYDROmorphone 0.5 MG/0.5 ML SYRINGE IVP PRN ×2 (17:11)
--- NOTE | 2021-05-31 17:25 | P.OP ---
Date of Procedure: 05/31/21 Preoperative Diagnosis: 1. Left periprosthetic distal femur fracture 2. Mild dementia Postoperative Diagnosis: 1. Left periprosthetic distal femur fracture 2. Mild dementia Procedure(s) Performed: 1. Left revision knee arthroplasty with distal femoral placing hinge 2. Application of negative pressure dressing, left knee, less than 50 cm Implants: 1. Nia GRMS Standard Left Femur 2. Nia GRMS [id number] 3. Nia GRMS Tibial M2 baseplate with 15x80 Stem 4. Poly 10mm with 3 degree bumper Anesthesia: GETA Surgeon: Gallito Ramos Balancing Machine Set Up Worker #1: Sina Victoria Estimated Blood Loss (ml): 300 IV fluids (ml): 1,800 Urine output (ml): 100 Pathology: none sent Condition: stable Disposition: PACU Indications for Procedure: The patient is a very pleasant 89-year-old female with a medical history significant for mild dementia who sustained a fall when she fell off the toilet resulting in a left distal periprosthetic femur fracture. The patient was admitted under internal medicine. She had x-rays and a computed tomography scan of the knee which showed a very low and unstable periprosthetic distal femur fracture. I met with the patient's daughter discuss treatment options. Treatment options discussed included nonoperative treatment with the braced, open reduction and internal fixation with either a retrograde nail or a plate and screws and revision knee arthroplasty with a distal femoral replacing hinge. We discussed the pros and cons of all treatment options. Since the patient was ambulatory with a walker prior to surgery, had very poor bone quality, and her fracture was very distal my recommendation was to revise her knee to a distal femoral replacing hinge to facilitate early ambulation. We had a long discussion on the potential risks and complications of this procedure including but certainly not limited to risks from anesthesia, superficial infection, deep periprosthetic joint infection, intraoperative fracture, postoperative fracture, patellar maltracking, leg length discrepancy, delayed wound healing, wound necrosis, damage to local blood vessels or nerves, instability, stiffness, dislocation, DVT, PE, other medical complications, failure to thrive, and inability to regain preinjury level of function, and possibly loss of life or limb. The patient and her daughters understand all these are the most common complications other less common competitions are possible. They provided both her verbal and written consent to go forward with surgery. Operative Findings: There is no acute fracture of the distal femur with a large hemarthrosis. Fracture line was very distal and was below the anterior flange of the femoral component. The femoral component also had debonded from the bone medially Description of Procedure: The patient was identified preoperatively and the correct left leg was marked my initials. I reviewed the consent form with the patient and her daughters. All their questions were answered. The patient was then brought back to the operating room by anesthesia. She was positioned on the OR table where a general anesthetic, preoperative antibiotics, and try to examine casted were given. A tourniquet was applied to the proximal aspect the left leg. A post was placed laterally and a bump was placed distally to allow flexion of the knee for positioning during surgery. Nonsterile drapes were applied. A pre-scrubbed with hexedine scrub brush was performed. The left leg was then prepped and draped in standard sterile fashion. Prior to starting surgery timeout was performed identifying the correct patient, operative extremity, and procedure. The patient's leg was then elevated, exsanguinated with an Esmarch bandage, and the tourniquet was inflated to 275 mmHg. X I began by outlining the prior anterior incision and scar over the knee. Skin incision was made directly over the previous scar with a scalpel. Dissection was carried down through the fascia and medial and lateral flaps were elevated taking care to stay deep to the fascia. A medial parapatellar arthrotomy was performed sharply. There was a large hemarthrosis which was evacuated. Was an obvious distal femur fracture immediately noted. The fracture was distal to the anterior flange of the femur. The femoral component also appeared to be loose distal medially. Medial and lateral gutters were debrided as well as tissue behind the patellar tendon and patellar button. The patellar button appeared well fixed. I then proceeded to release the collaterals off the femur as well as the posterior soft tissue attachments. A 2 cm ribbon retractor was placed under the femur and a sagittal saw was used to cut the distal femur above the anterior flange just proximal to the metaphyseal flare. Attention was then turned to the tibia. The interface between the cement and bone was identified and using a combination of a sagittal saw and reciprocating saws was debonded from the underlying bone. I then used a bone tamp and a mallet to gently remove the tibial component. An acorn bur was used to breakthrough the cement pedestal distally and then all remaining cement was removed with the acorn bur. I then sequentially reamed and trialed a tibial stem which had excellent fit and coverage. I then reamed the femur and placed a trial stem when I reached alvarez maria de jesus ramiresjacobo. Trial components were placed and the knee felt stable. All trial components were then removed. The wound was thoroughly irrigated with pulsatile lavage. I then cemented in stages. I began by cementing the tibial component and held until the cement had completely hardened. I then cemented the femur and held the femur in appropriate rotation until the cement had completely hardened. The implants were thoroughly irrigated and the hinge components were placed and the axle was placed with a 3 bumper. The knee had full extension and flexion. The tourniquet was let down to the cement had hardened. Liters were controlled. A 3 minute soak with dilute Betadine was performed. The Betadine was then irrigated out with 3 L of sterile saline using pulse lavage. The tourniquet was let down and the patellar tracked midline. A chlorhexidine solution was then used and the knee again irrigated with 1 L of sterile saline. A deep drain was placed. 2 g of vancomycin powder was placed. The wound was then closed in layers. The skin incision was closed with a running subcuticular Monocryl suture and reinforced with 2-0 nylon vertical mattress stitches. A Provine a wound VAC was placed. A drain sponge was placed. Leg was then wrapped with a web roll and an Darin wrap and placed in a knee immobilizer to protect the incision. The patient was then extubated, [place], and brought to recovery having tolerated the procedure well. Sina Victoria PA-C was required as a skilled doctor assistant due to the complexity of the procedure. Plan: The patient can weight-bear as tolerated on her left leg. She will wear her knee immobilizer for 24 hours to protect her incision. She will receive 2 doses of postoperative Ancef and then will need 2 weeks of doxycycline 100 mg twice a day due to her being a high risk revision. DVT prophylaxis with aspirin 81 mg twice a day.
--- NOTE | 2021-05-31 17:28 | XR ---
EXAMINATION TYPE: XR knee limited LT DATE OF EXAM: 05/31/2021 COMPARISON: 05/29/2021 HISTORY: Knee surgery TECHNIQUE: 4 views FINDINGS: There is a left knee prosthesis. Components are in anatomic position. IMPRESSION: There is revision of the knee prosthesis. No complicating process seen.
[2021-05-31] MEDS ORDERED: SODIUM CHLORIDE 0.9% 1,000 ML IV ONE ×2 (17:48)
--- NOTE | 2021-05-31 17:53 | P.PN ---
Progress Note - Text Progress Note Date: 05/31/21 Chief Complaint: Left leg pain This is a pleasant 89-year-old patient, follows with visiting physicians Dr. Zuñiga. Patient is a poor historian. Per the EMS report and ER notes. Patient's caregiver stated that patient was found laying on the bathroom floor. She was assisting the patient off the toilet when the patient slipped and fell on to the bathroom floor landing directly onto her left hip. Nose no hitting of the head. Patient complaining of pain in the left leg. No rotational deformity was noted. Her pain within was 7 out of 10. Patient was then transported to the ER. The patient also is not sure why she is here. Computed tomography scan of the x-ray in the ER didn't rule out any obvious fracture. Patient still complains of pain in the left hip area. She does not know the month or the year on exactly why she is here. Patient looking for her daughter. May 29: Declining in bed. Some pain in the leg. Daughter the bedside. Oral intake fair. Computed tomography scan of the knee showing acute mildly displaced lateral left femoral condyle periprosthetic fracture. Orthopedic at this point to be discussing with the family operative versus conservative management with a brace May 30: Reclining in bed. Having lunch. Daughter present. Decision made to proceed for surgery tomorrow. Pain control. May 31: Sulfa patient this morning. 3 daughters at the bedside. Pending surgery. Comfortable. Cheerful. Later this afternoon underwent left revision knee arthroplasty with distal femoral placing change. Review of systems: Was done for constitutional, cardiovascular, GI, pulmonary. relevant finding as above Active Medications Acetaminophen (Acetaminophen Tab 500 Mg Tab) 500 mg PO Q4HR PRN PRN Reason: Fever and/ or MILD Pain Last Admin: 05/31/21 08:42 Dose: 500 mg Documented by: Hydrocodone Bitart/Acetaminophen (Hydrocodone/Apap 5-325mg 1 Each Tab) 1 each PO Q6HR PRN PRN Reason: Pain Scale 1 to 5 Hydrocodone Bitart/Acetaminophen (Hydrocodone/Apap 5-325mg 1 Each Tab) 2 each PO Q6HR PRN PRN Reason: Pain Scale 6 to 10 Aspirin (Aspirin 81 Mg) 81 mg PO BID [facility] Cephalexin (Cephalexin 250 Mg Cap) 250 mg PO QID [facility] Last Admin: 05/31/21 12:30 Dose: Not Given Documented by: Citalopram Hydrobromide (Citalopram Hydrobromide 20 Mg Tab) 20 mg PO HS [facility] Last Admin: 05/30/21 21:13 Dose: 20 mg Documented by: Enoxaparin Sodium (Enoxaparin 40 Mg/0.4 Ml Syringe) 40 mg SQ DAILY [facility] Last Admin: 05/31/21 09:55 Dose: Not Given Documented by: Lisinopril/HCTZ (Lisinopril-Hctz 10-12.5 Mg 1 Each Tab) 1 each PO HS [facility] Last Admin: 05/30/21 21:13 Dose: 1 each Documented by: Hydromorphone HCl (Hydromorphone 0.2 Mg/1 Ml Syringe) 0.2 mg IVP Q3HR PRN PRN Reason: Pain Scale 4 to 6 Hydromorphone HCl (Hydromorphone 0.5 Mg/0.5 Ml Syringe) 0.125 mg IVP Q3HR PRN PRN Reason: Pain Scale 1 to 3 Hydromorphone HCl (Hydromorphone 0.5 Mg/0.5 Ml Syringe) 0.5 mg IVP Q3HR PRN PRN Reason: Pain Scale 7 to 10 Sodium Chloride (Saline 0.9%) 1,000 mls @ 10 mls/hr IV .Q24H [facility] Last Admin: 05/31/21 04:47 Dose: Not Given Documented by: Cefazolin Sodium 2 gm/ Sodium (Chloride) 50 mls @ 100 mls/hr IVPB Q8HR [facility] Stop: 06/01/21 08:29 Magnesium Hydroxide (Magnesium Hydroxide 2,400 Mg/10 Ml Cup) 2,400 mg PO DAILY PRN PRN Reason: Constipation Metoprolol Tartrate (Metoprolol Tartrate 50 Mg Tab) 50 mg PO BID [facility] Last Admin: 05/31/21 08:42 Dose: 50 mg Documented by: Multivitamins (Multivitamins, Thera 1 Each Tab) 1 each PO DAILY [facility] Last Admin: 05/31/21 09:55 Dose: Not Given Documented by: Naloxone HCl (Naloxone 0.4 Mg/Ml 1 Ml Vial) 0.2 mg IV Q2M PRN PRN Reason: Opioid Reversal Ondansetron HCl (Ondansetron 4 Mg/2 Ml Vial) 4 mg IVP Q8HR PRN PRN Reason: Nausea And Vomiting Senna/Docusate Sodium (Sennosides-Docusate Sodium 1 Each Tab) 2 each PO HS [facility] Past medical history to include: Breast cancer, pacemaker, CHF, Social history: He denies history of smoking or alcohol. Has a caregiver. Family history: Patient cannot tell Physical examination: VITAL SIGNS: 96.9, 60, 16, 160/67, 95% room air GENERAL: reclining bed, awake, comfortable. EYES: Pupils equal. Conjunctiva normal. HEENT: External appearance of nose and ears normal, oral cavity grossly normal. NECK: JVD not raised; masses not palpable. HEART: First and second heart sounds are normal; no edema. LUNGS: Respiratory rate normal; clear to auscultation. ABDOMEN: Soft, nontender, liver spleen not palpable, no masses palpable. MUSCULAR skeletal: Evidence of OA especially in the hands and knees. PSYCH: Answering simple questions INVESTIGATIONS, reviewed in the clinical context: TSH .May 29: WBC 6.8 hemoglobin 11.9 platelets 127 Computed tomography scan left knee: Acutely mildly displaced lateral left femoral condyle periprosthetic fracture White count 9.1 hemoglobin 13 platelets 138 sodium 135 potassium 4.2. 40 creatinine 0.96 UA positive for nitrate, leukoesterase, WBC, bacteria Coronavirus [PCR]: Not detected EKG tracing personally reviewed by me-atrial sensed ventricular paced rhythm. Computed tomography scan left femur: DJD changes. No evidence of fracture. Chest x-ray film personally reviewed by me-pacemaker. Some unfolding of the aorta. Prominent pulmonary artery. Assessment and plan: -Fall resulting in Acutely mildly displaced lateral left femoral condyle periprosthetic fracture May 31:left revision knee arthroplasty with distal femoral placing change, or Dr. Ramos -Essential hypertension Lopressor to 50 mg twice a day. 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 Chronic systolic heart failure. Follow clinically -Possible UTI. 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 Medication to continue. Patient underwent surgery this afternoon. Further orders per orthopedics. Repeat labs. IV Ancef prophylactically.
[2021-05-31] MEDS: SENNOSIDES-DOCUSATE SODIUM 1 EACH TAB PO SCH (21:48)
[2021-05-31] MEDS: ASPIRIN 81 MG PO SCH (21:48)
[2021-05-31] MEDS: CITALOPRAM HYDROBROMIDE 20 MG TAB PO SCH (21:49)
[2021-05-31] MEDS: LISINOPRIL-HCTZ 10-12.5 MG 1 EACH TAB PO SCH (23:44)
[2021-06-01 06:30] LABS: Basophils % (A) 0 %; Eosinophils % (A) 0 %; HCT 31.8 % (34.0-46.0); HGB 10.5 gm/dL (11.4-16.0); Lymphocytes # (A) 1.1 k/uL (1.0-4.8); Lymphocytes % (A) 10 %; MCH 32.2 pg (25.0-35.0); MCV 97.6 fL (80.0-100.0); Mean Platelet Volume 8.5; Monocytes # (A) 0.7 k/uL (0-1.0); Monocytes % (A) 7 %; Neutrophils # (A) 8.8 k/uL (1.3-7.7); Neutrophils % (A) 82 %; Platelet Count 157 k/uL (150-450); RBC 3.26 m/uL (3.80-5.40); RDW 13.7 % (11.5-15.5); WBC 10.8 k/uL (3.8-10.6)
[2021-06-01 06:38] LABS: African American GFR (CKD) 60 (>60 ml/min/1.73 sqM); Anion Gap 11 mmol/L; Blood Urea Nitrogen 24 mg/dL (7-17); Carbon Dioxide 25 mmol/L (22-30); Chloride 100 mmol/L (98-107); Glucose 185 mg/dL (74-99); Non-African American GFR(CKD) 52 (>60 ml/min/1.73 sqM); Potassium 4.4 mmol/L (3.5-5.1); Sodium 136 mmol/L (137-145)
[2021-06-01] MEDS: SODIUM CHLORIDE 0.9% 1,000 ML IV SCH (07:18)
[2021-06-01] MEDS: CEPHALEXIN 250 MG CAP PO SCH ×3 (09:48→20:25)
[2021-06-01] MEDS: ENOXAPARIN 40 MG/0.4 ML SYRINGE SQ SCH (09:49)
[2021-06-01] MEDS: ASPIRIN 81 MG PO SCH ×2 (09:49→22:02)
[2021-06-01] MEDS: MULTIVITAMINS, THERA 1 EACH TAB PO SCH (09:50)
[2021-06-01] MEDS: METOPROLOL TARTRATE 50 MG TAB PO SCH (12:03)
--- NOTE | 2021-06-01 14:18 | P.PN ---
Subjective Progress Note Date: 06/01/21 This patient is a 89-year-old female who is status-post left revision knee arthroplasty with distal femoral placing hinge on 05/31/21. Today is postoperative day #1. The patient is seen and examined by Dr. Ramos. She states the pain in her left knee is currently well controlled at this time. She has not yet been up with physical therapy. She has no new complaints this morning. Vital signs stable. Objective - Vital Signs Vital signs: Vital Signs Temp 98.4 F 06/01/21 12:51 Pulse 57 L 06/01/21 12:51 Resp 16 06/01/21 12:51 BP 88/50 06/01/21 12:51 Pulse Ox 95 06/01/21 12:51 Intake & Output 05/31/21 06/01/21 06/01/21 18:59 06:59 18:59 Intake Total 2024 280 Output Total 375 400 50 Balance 1650 -120 -50 Weight 72.575 kg Intake: IV 2024 Oral 280 Output: Drainage 50 Left Knee 50 Urine 15 400 Estimated Blood Loss 360 Other: Voiding Method Indwelling Catheter Indwelling Catheter - Exam On examination, the patient is lying in bed in no apparent distress. She is alert and oriented, and answer questions appropriately. On inspection of the left knee, there is a knee immobilizer in place. Hemovac drain and wound VAC in place under the knee immobilizer. The visible portion of the foot and toes are warm and well perfused with brisk capillary refill distally. Motor and sensory function is intact of the left lower extremity. - Labs CBC & Chem 7: 06/01/21 05:56 06/01/21 05:56 Labs: Abnormal Lab Results - Last 24 Hours (Table) 06/01/21 06/01/21 Range/Units 05:56 05:56 WBC 10.8 H (3.8-10.6) k/uL RBC 3.26 L (3.80-5.40) m/uL Hgb 10.5 L (11.4-16.0) gm/dL Hct 31.8 L (34.0-46.0) % Neutrophils # 8.8 H (1.3-7.7) k/uL Sodium 136 L (137-145) mmol/L BUN 24 H (7-17) mg/dL Glucose 185 H (74-99) mg/dL Assessment and Plan Assessment: Status-post left revision knee arthroplasty with distal femoral placing hinge on 05/31/21. Post-operative day #1. Plan: - Patient may weight as tolerated on the operative leg with assistance and a walker. - Physical therapy for gait and balance training. - We will plan to keep hemovac drain and Prevena wound vac in place. - Keep knee immobilizer in place until tomorrow. - Post-op IV antibiotics complete. Will begin patient on doxycycline 100mg BID for wound healing prophylaxis. - Pain management as needed. - Aspirin 81mg BID for DVT prophylaxis. - We will follow patient closely.
--- NOTE | 2021-06-01 19:42 | P.PN ---
Progress Note - Text Progress Note Date: 06/01/21 Chief Complaint: Left leg pain This is a pleasant 89-year-old patient, follows with visiting physicians Dr. Zuñiga. Patient is a poor historian. Per the EMS report and ER notes. Patient's caregiver stated that patient was found laying on the bathroom floor. She was assisting the patient off the toilet when the patient slipped and fell on to the bathroom floor landing directly onto her left hip. Nose no hitting of the head. Patient complaining of pain in the left leg. No rotational deformity was noted. Her pain within was 7 out of 10. Patient was then transported to the ER. The patient also is not sure why she is here. Computed tomography scan of the x-ray in the ER didn't rule out any obvious fracture. Patient still complains of pain in the left hip area. She does not know the month or the year on exactly why she is here. Patient looking for her daughter. May 29: Declining in bed. Some pain in the leg. Daughter the bedside. Oral intake fair. Computed tomography scan of the knee showing acute mildly displaced lateral left femoral condyle periprosthetic fracture. Orthopedic at this point to be discussing with the family operative versus conservative management with a brace May 30: Reclining in bed. Having lunch. Daughter present. Decision made to proceed for surgery tomorrow. Pain control. May 31: saw patient this morning. 3 daughters at the bedside. Pending surgery. Comfortable. Cheerful. Later this afternoon underwent left revision knee arthroplasty with distal femoral placing change. June 01: Pain control. Left knee in a brace with Hemovac. Did eat some. No nausea vomiting. No chest pain or shortness of breath. Blood pressure running low. Lopressor cutback to 12.5 twice a day. Lisinopril discontinued. Review of systems: Was done for constitutional, cardiovascular, GI, pulmonary. relevant finding as above Active Medications Acetaminophen (Acetaminophen Tab 500 Mg Tab) 500 mg PO Q4HR PRN PRN Reason: Fever and/ or MILD Pain Last Admin: 05/31/21 08:42 Dose: 500 mg Documented by: Hydrocodone Bitart/Acetaminophen (Hydrocodone/Apap 5-325mg 1 Each Tab) 1 each PO Q6HR PRN PRN Reason: Pain Scale 1 to 5 Hydrocodone Bitart/Acetaminophen (Hydrocodone/Apap 5-325mg 1 Each Tab) 2 each PO Q6HR PRN PRN Reason: Pain Scale 6 to 10 Aspirin (Aspirin 81 Mg) 81 mg PO BID [facility] Last Admin: 06/01/21 09:49 Dose: 81 mg Documented by: Cephalexin (Cephalexin 250 Mg Cap) 250 mg PO QID [facility] Last Admin: 06/01/21 13:30 Dose: 250 mg Documented by: Citalopram Hydrobromide (Citalopram Hydrobromide 20 Mg Tab) 20 mg PO HS [facility] Last Admin: 05/31/21 21:49 Dose: 20 mg Documented by: Doxycycline Monohydrate (Doxycycline 100 Mg Cap) 100 mg PO BID [facility] Enoxaparin Sodium (Enoxaparin 40 Mg/0.4 Ml Syringe) 40 mg SQ DAILY [facility] Last Admin: 06/01/21 09:49 Dose: 40 mg Documented by: Hydromorphone HCl (Hydromorphone 0.2 Mg/1 Ml Syringe) 0.2 mg IVP Q3HR PRN PRN Reason: Pain Scale 4 to 6 Hydromorphone HCl (Hydromorphone 0.5 Mg/0.5 Ml Syringe) 0.125 mg IVP Q3HR PRN PRN Reason: Pain Scale 1 to 3 Hydromorphone HCl (Hydromorphone 0.5 Mg/0.5 Ml Syringe) 0.5 mg IVP Q3HR PRN PRN Reason: Pain Scale 7 to 10 Sodium Chloride (Saline 0.9%) 1,000 mls @ 10 mls/hr IV .Q24H [facility] Last Admin: 06/01/21 07:18 Dose: Not Given Documented by: Magnesium Hydroxide (Magnesium Hydroxide 2,400 Mg/10 Ml Cup) 2,400 mg PO DAILY PRN PRN Reason: Constipation Metoprolol Tartrate (Metoprolol Tartrate 12.5 Mg Tab) 12.5 mg PO BID [facility] Multivitamins (Multivitamins, Thera 1 Each Tab) 1 each PO DAILY [facility] Last Admin: 06/01/21 09:50 Dose: 1 each Documented by: Naloxone HCl (Naloxone 0.4 Mg/Ml 1 Ml Vial) 0.2 mg IV Q2M PRN PRN Reason: Opioid Reversal Ondansetron HCl (Ondansetron 4 Mg/2 Ml Vial) 4 mg IVP Q8HR PRN PRN Reason: Nausea And Vomiting Last Admin: 06/01/21 00:45 Dose: 4 mg Documented by: Senna/Docusate Sodium (Sennosides-Docusate Sodium 1 Each Tab) 2 each PO HS [facility] Last Admin: 05/31/21 21:48 Dose: 2 each Documented by: Past medical history to include: Breast cancer, pacemaker, CHF, Social history: He denies history of smoking or alcohol. Has a caregiver. Family history: Patient cannot tell Physical examination: VITAL SIGNS: 98.4, 57, 16, 80/50, 95% room air GENERAL: reclining bed, awake, comfortable. EYES: Pupils equal. Conjunctiva normal. HEENT: External appearance of nose and ears normal, oral cavity grossly normal. NECK: JVD not raised; masses not palpable. HEART: First and second heart sounds are normal; no edema. LUNGS: Respiratory rate normal; clear to auscultation. ABDOMEN: Soft, nontender, liver spleen not palpable, no masses palpable. MUSCULAR skeletal: Evidence of OA especially in the hands. Left knee in a brace. Hemovac PSYCH: Answering simple questions INVESTIGATIONS, reviewed in the clinical context: June 01: White count 10.8 hemoglobin 10.5 potassium 4.4 creatinine 0.97 TSH 1.06 May 29: WBC 6.8 hemoglobin 11.9 platelets 127 Computed tomography scan left knee: Acutely mildly displaced lateral left femor al condyle periprosthetic fracture White count 9.1 hemoglobin 13 platelets 138 sodium 135 potassium 4.2. 40 creatinine 0.96 UA positive for nitrate, leukoesterase, WBC, bacteria Coronavirus [PCR]: Not detected EKG tracing personally reviewed by me-atrial sensed ventricular paced rhythm. Computed tomography scan left femur: DJD changes. No evidence of fracture. Chest x-ray film personally reviewed by me-pacemaker. Some unfolding of the aorta. Prominent pulmonary artery. Assessment and plan: -Fall resulting in Acutely mildly displaced lateral left femoral condyle periprosthetic fracture May 31:left revision knee arthroplasty with distal femoral placing change, or Dr. 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 Chronic systolic heart failure. Follow clinically -Possible UTI. 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 DC lisinopril . Other medications to continue. Repeat labs. DC Keflex
[2021-06-01] MEDS: DOXYCYCLINE 100 MG CAP PO SCH (22:02)
[2021-06-01] MEDS: SENNOSIDES-DOCUSATE SODIUM 1 EACH TAB PO SCH (22:02)
[2021-06-01] MEDS: METOPROLOL TARTRATE 12.5 MG TAB PO SCH (22:02)
[2021-06-01] MEDS: CITALOPRAM HYDROBROMIDE 20 MG TAB PO SCH (22:02)
[2021-06-02] MEDS: SODIUM CHLORIDE 0.9% 1,000 ML IV SCH (05:36)
[2021-06-02 05:51] VITALS: RESP 18
[2021-06-02 07:24] LABS: Basophils % (A) 0 %; Eosinophils # (A) 0.1 k/uL (0-0.7); Eosinophils % (A) 1 %; Lymphocytes # (A) 1.6 k/uL (1.0-4.8); Lymphocytes % (A) 21 %; MCH 32.4 pg (25.0-35.0); MCHC 33.7 g/dL (31.0-37.0); MCV 96.1 fL (80.0-100.0); Mean Platelet Volume 8.1; Monocytes # (A) 0.4 k/uL (0-1.0); Monocytes % (A) 6 %; Neutrophils # (A) 5.3 k/uL (1.3-7.7); Neutrophils % (A) 70 %; Platelet Count 155 k/uL (150-450); RBC 2.61 m/uL (3.80-5.40); RDW 14.3 % (11.5-15.5); WBC 7.5 k/uL (3.8-10.6)
[2021-06-02 07:28] LABS: HGB 8.4 gm/dL (11.4-16.0)
[2021-06-02] MEDS: ENOXAPARIN 40 MG/0.4 ML SYRINGE SQ SCH (08:51)
[2021-06-02] MEDS: DOXYCYCLINE 100 MG CAP PO SCH ×2 (08:51→22:16)
[2021-06-02] MEDS: ASPIRIN 81 MG PO SCH ×2 (08:51→22:15)
[2021-06-02] MEDS: MULTIVITAMINS, THERA 1 EACH TAB PO SCH (08:51)
[2021-06-02] MEDS: METOPROLOL TARTRATE 12.5 MG TAB PO SCH (08:51)
--- NOTE | 2021-06-02 09:52 | P.PN ---
Subjective Progress Note Date: 06/02/21 This patient is a 89-year-old female who is status-post left revision knee arthroplasty with distal femoral placing hinge on 05/31/21. Today is postoperative day #2. The patient is seen and examined bedside. She states her pain in the left knee is well-controlled at this time. Per nursing, she attempted to get up with physical therapy yesterday although blood pressures were running low and she felt dizzy. Patient denies any specific complaints at this time. Vital signs stable. Objective - Vital Signs Vital signs: Vital Signs Temp 97.6 F 06/02/21 05:00 Pulse 84 06/02/21 05:00 Resp 18 06/02/21 05:00 BP 143/74 06/02/21 05:00 Pulse Ox 94 L 06/02/21 05:00 Intake & Output 06/01/21 06/02/21 06/02/21 18:59 06:59 18:59 Intake Total 640 240 Output Total 50 400 Balance 590 -160 Intake: Intake, IV Titration 160 240 Amount Sodium Chloride 0.9% 1, 240 000 ml @ 0 mls/hr IV .[facility] Rx#:[id number] Sodium Chloride 0.9% 1, 60 000 ml @ 10 mls/hr IV . Q24H [facility] Rx#:[id number] ceFAZolin 2 gm In Sodium 100 Chloride 0.9% 50 ml @ 100 mls/hr IVPB Q8HR [facility] Rx# :[id number] Oral 480 Output: Drainage 50 Left Knee 50 Urine 400 Other: Voiding Method Indwelling Catheter Indwelling Catheter - Exam On examination, the patient is lying in bed in no apparent distress. She is alert and oriented, and answer questions appropriately. On inspection of the left knee, there is a knee immobilizer in place. Hemovac drain and wound VAC in place under the knee immobilizer. The visible portion of the foot and toes are warm and well perfused with brisk capillary refill distally. Motor and sensory function is intact of the left lower extremity. - Labs CBC & Chem 7: 06/02/21 06:36 06/01/21 05:56 Labs: Abnormal Lab Results - Last 24 Hours (Table) 06/02/21 Range/Units 06:36 RBC 2.61 L (3.80-5.40) m/uL Hgb 8.4 L D (11.4-16.0) gm/dL Hct 25.0 L (34.0-46.0) % Assessment and Plan Assessment: Status-post left revision knee arthroplasty with distal femoral placing hinge on 05/31/21. Post-operative day #2. Plan: - Patient may weight as tolerated on the operative leg with assistance and a walker. - Physical therapy for gait and balance training. - Keep Prevena wound vac in place. Will plan to remove hemovac drain today. - Post-op IV antibiotics complete. Will begin patient on doxycycline 100mg BID for wound healing prophylaxis. - Pain management as needed. - Aspirin 81mg BID for DVT prophylaxis. - We will follow patient closely.
[2021-06-02 16:01] LABS: HGB 9.4 gm/dL (11.4-16.0); MCH 32.3 pg (25.0-35.0); MCHC 33.6 g/dL (31.0-37.0); MCV 96.3 fL (80.0-100.0); Mean Platelet Volume 8.9; Platelet Count 168 k/uL (150-450); RBC 2.91 m/uL (3.80-5.40); RDW 14.2 % (11.5-15.5); WBC 8.1 k/uL (3.8-10.6)
--- NOTE | 2021-06-02 16:07 | P.PN ---
Progress Note - Text Progress Note Date: 06/02/21 Chief Complaint: Left leg pain This is a pleasant 89-year-old patient, follows with visiting physicians Dr. Zuñiga. Patient is a poor historian. Per the EMS report and ER notes. Patient's caregiver stated that patient was found laying on the bathroom floor. She was assisting the patient off the toilet when the patient slipped and fell on to the bathroom floor landing directly onto her left hip. Nose no hitting of the head. Patient complaining of pain in the left leg. No rotational deformity was noted. Her pain within was 7 out of 10. Patient was then transported to the ER. The patient also is not sure why she is here. Computed tomography scan of the x-ray in the ER didn't rule out any obvious fracture. Patient still complains of pain in the left hip area. She does not know the month or the year on exactly why she is here. Patient looking for her daughter. May 29: Declining in bed. Some pain in the leg. Daughter the bedside. Oral intake fair. Computed tomography scan of the knee showing acute mildly displaced lateral left femoral condyle periprosthetic fracture. Orthopedic at this point to be discussing with the family operative versus conservative management with a brace May 30: Reclining in bed. Having lunch. Daughter present. Decision made to proceed for surgery tomorrow. Pain control. May 31: saw patient this morning. 3 daughters at the bedside. Pending surgery. Comfortable. Cheerful. Later this afternoon underwent left revision knee arthroplasty with distal femoral placing change. June 01: Pain control. Left knee in a brace with Hemovac. Did eat some. No nausea vomiting. No chest pain or shortness of breath. Blood pressure running low. Lopressor cutback to 12.5 twice a day. Lisinopril discontinued. June 02: Hemovac removed today. Brace removed. Prerenal from VAC in place. Hemoglobin down to 8.4. Unable to ambulate with physical therapy because of weakness. Repeat hemoglobin tomorrow. Blood pressures running on the high side. Increase Lopressor 25 mg twice a day. Review of systems: Was done for constitutional, cardiovascular, GI, pulmonary. relevant finding as above Active Medications Acetaminophen (Acetaminophen Tab 500 Mg Tab) 500 mg PO Q4HR PRN PRN Reason: Fever and/ or MILD Pain Last Admin: 05/31/21 08:42 Dose: 500 mg Documented by: Hydrocodone Bitart/Acetaminophen (Hydrocodone/Apap 5-325mg 1 Each Tab) 1 each PO Q6HR PRN PRN Reason: Pain Scale 1 to 5 Hydrocodone Bitart/Acetaminophen (Hydrocodone/Apap 5-325mg 1 Each Tab) 2 each PO Q6HR PRN PRN Reason: Pain Scale 6 to 10 Aspirin (Aspirin 81 Mg) 81 mg PO BID [facility] Last Admin: 06/02/21 08:51 Dose: 81 mg Documented by: Citalopram Hydrobromide (Citalopram Hydrobromide 20 Mg Tab) 20 mg PO HS [facility] Last Admin: 06/01/21 22:02 Dose: 20 mg Documented by: Doxycycline Monohydrate (Doxycycline 100 Mg Cap) 100 mg PO BID [facility] Last Admin: 06/02/21 08:51 Dose: 100 mg Documented by: Enoxaparin Sodium (Enoxaparin 40 Mg/0.4 Ml Syringe) 40 mg SQ DAILY [facility] Last Admin: 06/02/21 08:51 Dose: 40 mg Documented by: Hydromorphone HCl (Hydromorphone 0.2 Mg/1 Ml Syringe) 0.2 mg IVP Q3HR PRN PRN Reason: Pain Scale 4 to 6 Hydromorphone HCl (Hydromorphone 0.5 Mg/0.5 Ml Syringe) 0.125 mg IVP Q3HR PRN PRN Reason: Pain Scale 1 to 3 Hydromorphone HCl (Hydromorphone 0.5 Mg/0.5 Ml Syringe) 0.5 mg IVP Q3HR PRN PRN Reason: Pain Scale 7 to 10 Sodium Chloride (Saline 0.9%) 1,000 mls @ 10 mls/hr IV .Q24H [facility] Last Admin: 06/02/21 05:36 Dose: 10 mls/hr Documented by: Magnesium Hydroxide (Magnesium Hydroxide 2,400 Mg/10 Ml Cup) 2,400 mg PO DAILY PRN PRN Reason: Constipation Metoprolol Tartrate (Metoprolol Tartrate 12.5 Mg Tab) 12.5 mg PO BID [facility] Last Admin: 06/02/21 08:51 Dose: 12.5 mg Documented by: Multivitamins (Multivitamins, Thera 1 Each Tab) 1 each PO DAILY [facility] Last Admin: 06/02/21 08:51 Dose: 1 each Documented by: Naloxone HCl (Naloxone 0.4 Mg/Ml 1 Ml Vial) 0.2 mg IV Q2M PRN PRN Reason: Opioid Reversal Ondansetron HCl (Ondansetron 4 Mg/2 Ml Vial) 4 mg IVP Q8HR PRN PRN Reason: Nausea And Vomiting Last Admin: 06/01/21 00:45 Dose: 4 mg Documented by: Senna/Docusate Sodium (Sennosides-Docusate Sodium 1 Each Tab) 2 each PO HS [facility] Last Admin: 06/01/21 22:02 Dose: 2 each Documented by: Past medical history to include: Breast cancer, pacemaker, CHF, Social history: He denies history of smoking or alcohol. Has a caregiver. Family history: Patient cannot tell Physical examination: VITAL SIGNS: 97.7, 79, 18, 159/80, 97% room air GENERAL: reclining in chair awake, comfortable. EYES: Pupils equal. Conjunctiva normal. HEENT: External appearance of nose and ears normal, oral cavity grossly normal. NECK: JVD not raised; masses not palpable. HEART: First and second heart sounds are normal; no edema. LUNGS: Respiratory rate normal; clear to auscultation. ABDOMEN: Soft, nontender, liver spleen not palpable, no masses palpable. MUSCULAR skeletal: Evidence of OA especially in the hands. Left knee in a prerenal wound VAC. Hemovac and brace removed. PSYCH: Answering questions appropriately INVESTIGATIONS, reviewed in the clinical context: June 02 hemoglobin 8.4. June 01: White count 10.8 hemoglobin 10.5 potassium 4.4 creatinine 0.97 TSH 1.06 May 29: WBC 6.8 hemoglobin 11.9 platelets 127 Computed tomography scan left knee: Acutely mildly displaced lateral left femoral condyle periprosthetic fracture White count 9.1 hemoglobin 13 platelets 138 sodium 135 potassium 4.2. 40 creatinine 0.96 UA positive for nitrate, leukoesterase, WBC, bacteria Coronavirus [PCR]: Not detected EKG tracing personally reviewed by me-atrial sensed ventricular paced rhythm. Computed tomography scan left femur: DJD changes. No evidence of fracture. Chest x-ray film personally reviewed by me-pacemaker. Some unfolding of the aor ta. Prominent pulmonary artery. Assessment and plan: -Fall resulting in Acutely mildly displaced lateral left femoral condyle periprosthetic fracture May 31:left revision knee arthroplasty with distal femoral placing change, or Dr. Ramos -Acute postprocedure blood loss anemia expected from surgery Repeat hemoglobin in the morning. 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 Chronic s ystolic heart failure. Follow clinically -Possible UTI. 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 DC lisinopril . Other medications to continue. Repeat labs. DC Keflex. Hopefully discharge to rehab tomorrow.
[2021-06-02] MEDS: SENNOSIDES-DOCUSATE SODIUM 1 EACH TAB PO SCH (22:16)
[2021-06-02] MEDS: CITALOPRAM HYDROBROMIDE 20 MG TAB PO SCH (22:16)
[2021-06-02] MEDS: METOPROLOL TARTRATE 25 MG TAB PO SCH (22:16)
[2021-06-03] MEDS: SODIUM CHLORIDE 0.9% 1,000 ML IV SCH (05:17)
[2021-06-03 06:01] LABS: Basophils % (A) 0 %; Eosinophils # (A) 0.2 k/uL (0-0.7); Eosinophils % (A) 3 %; HCT 29.3 % (34.0-46.0); HGB 9.7 gm/dL (11.4-16.0); Lymphocytes # (A) 1.3 k/uL (1.0-4.8); Lymphocytes % (A) 17 %; MCHC 33.2 g/dL (31.0-37.0); MCV 96.3 fL (80.0-100.0); Mean Platelet Volume 8.7; Monocytes # (A) 0.5 k/uL (0-1.0); Monocytes % (A) 6 %; Neutrophils # (A) 5.5 k/uL (1.3-7.7); Neutrophils % (A) 73 %; Platelet Count 188 k/uL (150-450); RBC 3.05 m/uL (3.80-5.40); RDW 13.6 % (11.5-15.5); WBC 7.6 k/uL (3.8-10.6)
[2021-06-03 06:37] LABS: African American GFR (CKD) >90 (>60 ml/min/1.73 sqM); Anion Gap 5 mmol/L; Blood Urea Nitrogen 16 mg/dL (7-17); Carbon Dioxide 28 mmol/L (22-30); Chloride 101 mmol/L (98-107); Glucose 148 mg/dL (74-99); Non-African American GFR(CKD) 78 (>60 ml/min/1.73 sqM); Potassium 3.9 mmol/L (3.5-5.1); Sodium 134 mmol/L (137-145)
[2021-06-03] MEDS: ASPIRIN 81 MG PO SCH (09:55)
[2021-06-03] MEDS: MULTIVITAMINS, THERA 1 EACH TAB PO SCH (09:55)
[2021-06-03] MEDS: METOPROLOL TARTRATE 25 MG TAB PO SCH (09:55)
[2021-06-03] MEDS: ENOXAPARIN 40 MG/0.4 ML SYRINGE SQ SCH (09:55)
[2021-06-03] MEDS: DOXYCYCLINE 100 MG CAP PO SCH (09:57)
[2021-06-03] MEDS ORDERED: METOPROLOL TARTRATE 25 MG TAB PO STA (10:53)
[2021-06-03 11:46] VITALS: BP 135/84; PULSE 100; TEMP 98
[2021-06-03 13:29] VITALS: BMI 29.2
--- NOTE | 2021-06-03 13:58 | P.DS ---
Providers Date of admission: 05/31/21 10:17 Expected date of discharge: 06/03/21 Attending physician: Velasquez Horton Consults: 05/28/21 12:42 Consult Physician Routine Consulting Provider: Gallito Ramos Consult Reason/Comments: left Hip pain /fall Do you want consulting provider notified?: Yes Primary care physician: [facility] Course: Chief Complaint: Left leg pain This is a pleasant 89-year-old patient, follows with visiting physicians Dr. Zuñiga. Patient is a poor historian. Per the EMS report and ER notes. Patient's caregiver stated that patient was found laying on the bathroom floor. She was assisting the patient off the toilet when the patient slipped and fell on to the bathroom floor landing directly onto her left hip. Nose no hitting of the head. Patient complaining of pain in the left leg. No rotational deformity was noted. Her pain within was 7 out of 10. Patient was then transported to the ER. The patient also is not sure why she is here. Computed tomography scan of the x-ray in the ER didn't rule out any obvious fracture. Patient still complains of pain in the left hip area. She does not know the month or the year on exactly why she is here. Patient looking for her daughter. May 29: Declining in bed. Some pain in the leg. Daughter the bedside. Oral intake fair. Computed tomography scan of the knee showing acute mildly displaced lateral left femoral condyle periprosthetic fracture. Orthopedic at this point to be discussing with the family operative versus conservative management with a brace May 30: Reclining in bed. Having lunch. Daughter present. Decision made to proceed for surgery tomorrow. Pain control. May 31: saw patient this morning. 3 daughters at the bedside. Pending surgery. Comfortable. Cheerful. Later this afternoon underwent left revision knee arthroplasty with distal femoral placing change. June 01: Pain control. Left knee in a brace with Hemovac. Did eat some. No nausea vomiting. No chest pain or shortness of breath. Blood pressure running low. Lopressor cutback to 12.5 twice a day. Lisinopril discontinued. June 02: Hemovac removed today. Brace removed. Prerenal from VAC in place. Hemoglobin down to 8.4. Unable to ambulate with physical therapy because of weakness. Repeat hemoglobin tomorrow. Blood pressures running on the high side. Increase Lopressor 25 mg twice a day. June 03: Brace on the left leg. Blood pressure slightly increased in. Lopressor increased to 50 red gram twice a day. Patient's pain is well controlled. ECF today. Care was discussed with the patient and nurse. KRANTHI Pascual Discussion and discharge planning more than 35 minutes Consultation: Dr. Ramos from orthopedics Past medical history to include: Breast cancer, pacemaker, CHF, Social history: He denies history of smoking or alcohol. Has a caregiver. Family history: Patient cannot tell Physical examination: VITAL SIGNS: 97.4, 85, 18, 162/85, 99% room air GENERAL: reclining in chair awake, comfortable. EYES: Pupils equal. Conjunctiva normal. HEENT: External appearance of nose and ears normal, oral cavity grossly normal. NECK: JVD not raised; masses not palpable. HEART: First and second heart sounds are normal; no edema. LUNGS: Respiratory rate normal; clear to auscultation. ABDOMEN: Soft, nontender, liver spleen not palpable, no masses palpable. MUSCULAR skeletal: Evidence of OA especially in the hands. Left knee in a prerenal wound VAC. With a brace PSYCH: Answering questions appropriately INVESTIGATIONS, reviewed in the clinical context: June 03: Hemoglobin 9.7 June 02 hemoglobin 8.4. June 01: White count 10.8 hemoglobin 10.5 potassium 4.4 creatinine 0.97 TSH 1.06 May 29: WBC 6.8 hemoglobin 11.9 platelets 127 Computed tomography scan left knee: Acutely mildly displaced lateral left femoral condyle periprosthetic fracture White count 9.1 hemoglobin 13 platelets 138 sodium 135 potassium 4.2. 40 creatinine 0.96 UA positive for nitrate, leukoesterase, WBC, bacteria Coronavirus [PCR]: Not detected EKG tracing personally reviewed by me-atrial sensed ventricular paced rhythm. Computed tomography scan left femur: DJD changes. No evidence of fracture. Chest x-ray film personally reviewed by me-pacemaker. Some unfolding of the aorta. Prominent pulmonary artery. Assessment and plan: -Fall resulting in Acutely mildly displaced lateral left femoral condyle periprosthetic fracture May 31:left revision knee arthroplasty with distal femoral placing change, or Dr. Ramos -Acute postprocedure blood loss anemia expected from surgery Hemoglobin 9.7. 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 Chronic systolic heart failure. Follow clinically -Possible UTI. 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 Disposition: Rehab/[facility] Patient Condition at Discharge: Good Plan - Discharge Summary Discharge Rx Participant: No New Discharge Prescriptions: New Doxycycline Monohydrate 100 mg PO BID 14 Days #28 cap Metoprolol Tartrate [Lopressor] 50 mg PO BID tab Sennosides-Docusate Sodium [Senokot-S] 2 each PO HS tab Rivaroxaban [Xarelto] 2.5 mg PO BID #60 tablet Acetaminophen Tab [Tylenol Tab] 500 mg PO Q6H PRN #1 tablet PRN Reason: Pain Continue Citalopram Hydrobromide 20 mg PO HS Multivitamins, Thera [Multivitamin (formulary)] 1 tab PO DAILY Discontinued Metoprolol Succinate [Toprol XL] 25 mg PO BID Discharge Medication List Citalopram Hydrobromide 20 mg PO HS 01/22/21 [History] Multivitamins, Thera [Multivitamin (formulary)] 1 tab PO DAILY 05/28/21 [History] Acetaminophen Tab [Tylenol Tab] 500 mg PO Q6H PRN #1 tablet 06/03/21 [Rx] Doxycycline Monohydrate 100 mg PO BID 14 Days #28 cap 06/03/21 [Rx] Metoprolol Tartrate [Lopressor] 50 mg PO BID tab 06/03/21 [Rx] Rivaroxaban [Xarelto] 2.5 mg PO BID #60 tablet 06/03/21 [Rx] Sennosides-Docusate Sodium [Senokot-S] 2 each PO HS tab 06/03/21 [Rx] Follow up Appointment(s)/Referral(s): Abran Glover MD [Primary Care Provider] - 1-2 days Gallito Ramos MD [Medical Doctor] - 1 Week Activity/Diet/Wound Care/Special Instructions: Weight bear as tolerated on operative leg with a walker and assistance. Keep Prevena wound vac in place until follow-up appointment. Keep knee immobilizer in place. Doxycycline 100mg BID for 2 weeks for wound healing prophylaxis. Aspirin 81mg BID for 4 weeks for blood clot prevention. Follow-up in the office in one week with Dr. Ramos. Call the office with any questions or concerns,
--- NOTE | 2021-06-03 14:28 | P.PN ---
Subjective Progress Note Date: 06/03/21 This patient is a 89-year-old female who is status-post left revision knee arthroplasty with distal femoral placing hinge on 05/31/21. Today is postoperative day #3. The patient is seen and examined this morning. She is up to the bedside chair. Per nursing, the patient removed her own Prevena wound VAC last evening and was confused. She also pulled out her IV and jones. Nursing put a new dressing over her incision. Patient denies pain in the left knee. No new complaints today. Vital signs stable. Objective - Vital Signs Vital signs: Vital Signs Temp 98 F 06/03/21 11:45 Pulse 100 06/03/21 11:45 Resp 18 06/03/21 11:45 BP 135/84 06/03/21 11:45 Pulse Ox 100 06/03/21 11:45 Intake & Output 06/02/21 06/03/21 06/03/21 18:59 06:59 18:59 Intake Total 650 100 Output Total 300 875 Balance 350 -775 Weight 72.575 kg Intake: Intake, IV Titration 110 100 Amount Sodium Chloride 0.9% 1, 110 100 000 ml @ 10 mls/hr IV . Q24H [facility] Rx#:[id number] Oral 540 Output: Urine 300 875 Other: Voiding Method Indwelling Catheter Indwelling Catheter Indwelling Catheter - Exam On examination, the patient is in the bedside chair. She is alert and orientated, answers questions appropriately. On inspection of the left knee, there is a healing incision of the anterior knee with intact sutures. No drainage. No surrounding erythema. No signs of infection. Motor and sensory function intact of the left lower extremity. Dorsalis pedis pulse +2, left lower extremity warm and well perfused. Calf is soft and non-tender. - Labs CBC & Chem 7: 06/03/21 05:36 06/03/21 05:36 Labs: Abnormal Lab Results - Last 24 Hours (Table) 06/02/21 06/03/21 06/03/21 Range/Units 15:45 05:36 05:36 RBC 2.91 L 3.05 L (3.80-5.40) m/uL Hgb 9.4 L 9.7 L (11.4-16.0) gm/dL Hct 28.0 L 29.3 L (34.0-46.0) % Sodium 134 L (137-145) mmol/L Glucose 148 H (74-99) mg/dL Assessment and Plan Assessment: Status-post left revision knee arthroplasty with distal femoral placing hinge on 05/31/21. Post-operative day #3. Plan: - Patient may weight as tolerated on the operative leg with assistance and a walker. - A new Prevena incisional wound vac was placed today. She should keep this wound vac in place until follow-up in the office. - Physical therapy for gait and balance training. - Knee immobilizer on at nighttime. May remove during the day. - Doxycycline 100mg BID for wound healing prophylaxis. - Pain management as needed. - Aspirin 81mg BID for DVT prophylaxis. - We will follow patient closely. We will plan to see the patient in the office in one week following discharge.
[2021-06-03] MEDS ORDERED: METOPROLOL TARTRATE 50 MG TAB PO SCH (21:00)
== END 2021-06-03 16:20 | DRG 470 ==
LOC: EC 22:45 → 5NMEDONC 05-28 02:00 → OBSVTOIN 05-31 10:17
PROVIDERS: ADMIT Hospitalist; ATTEND Hospitalist
PROC: 2W1RX6Z Compression of Left Lower Leg using Pressure Dressing (ICD-10-PCS; 2021-05-31)
PROC: 0SRU0J9 Replacement of Left Knee Joint, Femoral Surface with Synthetic Substitute, Cemented, Open Approach (ICD-10-PCS; principal; 2021-05-31 11:00)
DX: M97.12XA Periprosthetic fracture around internal prosthetic left knee joint, initial encounter (principal); D62 Acute posthemorrhagic anemia; D69.3 Immune thrombocytopenic purpura; I42.9 Cardiomyopathy, unspecified; I50.22 Chronic systolic (congestive) heart failure; I44.2 Atrioventricular block, complete; N39.0 Urinary tract infection, site not specified; F02.80 Dementia in other diseases classified elsewhere, unspecified severity, without behavioral disturbance, psychotic disturbance, mood disturbance, and anxiety; G30.9 Alzheimer's disease, unspecified; I11.0 Hypertensive heart disease with heart failure; Z20.822 Contact with and (suspected) exposure to COVID-19; M19.91 Primary osteoarthritis, unspecified site; I95.9 Hypotension, unspecified; W18.11XA Fall from or off toilet without subsequent striking against object, initial encounter; S80.12XA Contusion of left lower leg, initial encounter; Z79.899 Other long term (current) drug therapy; Z85.3 Personal history of malignant neoplasm of breast; Z90.13 Acquired absence of bilateral breasts and nipples; Z95.0 Presence of cardiac pacemaker
CPT/HCPCS: 36415; 71045; 73502; 80048; 80053; 81001; 83735; 83880; 84100; 84443; 84484; 85025; 85027; 85610; 85730; 87077; 87086; 87186; 87635; 88305; 88311; 93005; 96361; 96374; 96375; 99285